=== PATIENT | male | born 1950 | race Caucasian/White ===

== ENCOUNTER 2020-02-26 15:15 | Outpatient (REF) | payer BC, SELFPAY ==
[2020-02-26 16:34] LABS: Anion Gap 11 (12-20); Blood Urea Nitrogen 27 mg/dL (9-16); Calcium 8.5 mg/dL (8.4-10.2); Carbon Dioxide 27 mmol/L (22-29); Chloride 105 mmol/L (96-108); Estimated Glomerular Filt Rate > 60; Glucose Random 90 mg/dL (60-115); Potassium 4.4 mmol/l (3.3-5.1); Sodium 139 mmol/L (135-145)
== END 2020-02-26 15:16 | disposition home or self-care (01) ==
LOC: HO.LAB 15:15
PROVIDERS: PCP Internal Medicine; Visit Provider Internal Medicine Cardiovascular Disease
DX: R94.39 Abnormal result of other cardiovascular function study (principal)
CPT/HCPCS: 80048

== ENCOUNTER → 2020-04-20 14:38 | Outpatient (BNVA) | payer BC, SELFPAY | PROVIDERS: PCP Internal Medicine; Visit Provider Internal Medicine Cardiovascular Disease | DX: Z76.89 Persons encountering health services in other specified circumstances (principal) ==

== ENCOUNTER 2020-07-05 15:36 | Outpatient (REF) | payer BC, SELFPAY ==
[2020-07-05 16:13] LABS: Alanine Aminotransferase 17 U/L (0-40); Albumin Level 4.2 g/dL (3.5-5.0); Alkaline Phosphatase 94 U/L (39-117); Aspartate Amino Transferase 18 U/L (5-37); Bilirubin Direct 0.4 mg/dL (0.0-0.5); Bilirubin Total 1.2 mg/dL (0.0-1.0); Cholesterol 179 mg/dL; HDL Cholesterol 59 mg/dL; LDL Cholesterol Calculated 107 mg/dl; Total Protein 6.5 g/dL (6.5-8.0); Triglycerides 69 mg/dL
[2020-07-05 16:40] LABS: Reflex LDLD? No
== END 2020-07-05 15:37 | disposition home or self-care (01) ==
LOC: HO.LNP 15:36
PROVIDERS: Visit Provider Internal Medicine
DX: E78.00 Pure hypercholesterolemia, unspecified (principal)
CPT/HCPCS: 80061; 80076

== ENCOUNTER 2021-01-17 11:40 | Outpatient (REF) | payer BC, SELFPAY ==
[2021-01-17 11:46] LABS: MANUAL DIFF FLAG NO
[2021-01-17 11:58] LABS: Basophils Percent Auto 0.5 % (0-2); Eosinophils Absolute Auto 0.1 X10*3/uL (0.0-0.4); Eosinophils Percent Auto 3.2 % (0-4); Hematocrit 38.4 % (42-52); Hemoglobin 12.5 g/dl (14.0-18.0); Imm Gran Abs Auto 0.01 X10*3/uL (0.00-0.03); Imm Gran Pct Auto 0.2 % (0.0-0.4); Lymphocytes Absolute Auto 1.3 X10*3/uL (1.2-4.9); Lymphocytes Percent Auto 29.3 % (20-40); Mean Corpuscular HGB Conc 32.6 g/dl (31.0-36.0); Mean Corpuscular Hemoglobin 31.8 pg (27.0-33.0); Mean Corpuscular Volume 97.7 fL (80-98); Mean Platelet Volume 9.7 fL (9.4-12.4); Monocytes Absolute Auto 0.4 X10*3/uL (0.1-1.2); Monocytes Percent Auto 8.8 % (2-11); Neutrophils Absolute Auto 2.6 X10*3/uL (2.0-8.3); Platelet Count 147 X10*3/uL (160-400); Red Blood Count 3.93 X10*6/uL (4.60-5.80); Red Cell Distribution Width 12.3 % (11.0-16.0); White Blood Count 4.4 X10*3/uL (4.8-10.8)
[2021-01-17 12:22] LABS: Appearance Urine CLEAR; Color Urine YELLOW; Glucose Urine UA NEG (NEG); Leukocyte Esterase Urine NEG (NEG); Nitrite Urine NEG (NEG); Specific Gravity - Urine 1.015 (1.005-1.025); Urine Blood NEG (NEG); Urine Ketones NEG (NEG); Urine Protein NEG (NEG-TRACE)
[2021-01-17 13:38] LABS: Alanine Aminotransferase 16 U/L (0-40); Albumin Level 4.1 g/dL (3.5-5.0); Alkaline Phosphatase 78 U/L (39-117); Anion Gap 13 (12-20); Aspartate Amino Transferase 19 U/L (5-37); Bilirubin Total 1.1 mg/dL (0.0-1.0); Blood Urea Nitrogen 17 mg/dL (9-16); Carbon Dioxide 26 mmol/L (22-29); Chloride 106 mmol/L (96-108); Cholesterol 170 mg/dL; Estimated Glomerular Filt Rate > 60; Glucose Fasting 92 mg/dL (60-99); HDL Cholesterol 57 mg/dL; LDL Cholesterol Calculated 103 mg/dl; Potassium 3.9 mmol/L (3.3-5.1); Sodium 141 mmol/L (135-145); Total Protein 6.2 g/dL (6.5-8.0); Triglycerides 51 mg/dL
[2021-01-17 13:51] LABS: PSA,Total (Free>4and<10) 2.15 ng/mL (0.00-4.00)
[2021-01-17 13:55] LABS: Reflex LDLD? No
== END 2021-01-17 11:41 | disposition home or self-care (01) ==
LOC: HO.LNP 11:40
PROVIDERS: Visit Provider Internal Medicine
DX: Z00.00 Encounter for general adult medical examination without abnormal findings (principal); I25.118 Atherosclerotic heart disease of native coronary artery with other forms of angina pectoris; E78.00 Pure hypercholesterolemia, unspecified; M72.0 Palmar fascial fibromatosis [Dupuytren]
CPT/HCPCS: 80053; 80061; 81003; 84153; 85025

== ENCOUNTER → 2021-04-10 14:46 | Outpatient (BNVA) | payer BC, SELFPAY | PROVIDERS: PCP Internal Medicine; Referring Provider Internal Medicine; Visit Provider Internal Medicine Cardiovascular Disease | DX: I25.10 Atherosclerotic heart disease of native coronary artery without angina pectoris (principal); R06.02 Shortness of breath; R07.89 Other chest pain | CPT/HCPCS: 93005 ==

== ENCOUNTER 2022-01-19 15:00 | Outpatient (REF) | payer BC, SELFPAY ==
[2022-01-19 15:17] LABS: MANUAL DIFF FLAG NO
[2022-01-19 15:39] LABS: Basophils Percent Auto 0.9 % (0-2); Eosinophils Absolute Auto 0.2 X10*3/uL (0.0-0.4); Eosinophils Percent Auto 4.5 % (0-4); Hematocrit 40.3 % (42.0-52.0); Hemoglobin 13.5 g/dl (14.0-18.0); Imm Gran Abs Auto 0.01 X10*3/uL (0.00-0.03); Imm Gran Pct Auto 0.3 % (0.0-0.4); Lymphocytes Absolute Auto 0.9 X10*3/uL (1.2-4.9); Lymphocytes Percent Auto 28.3 % (20-40); Mean Corpuscular HGB Conc 33.5 g/dl (31.0-36.0); Mean Corpuscular Hemoglobin 31.8 pg (27.0-33.0); Mean Corpuscular Volume 94.8 fL (80.0-98.0); Mean Platelet Volume 9.2 fL (9.4-12.4); Monocytes Absolute Auto 0.3 X10*3/uL (0.1-1.2); Neutrophils Absolute Auto 1.9 x10*3/uL (2.0-8.3); Platelet Count 159 X10*3/uL (160-400); Red Blood Count 4.25 X10*6/uL (4.60-5.80); Red Cell Distribution Width 12.6 % (11.0-16.0); White Blood Count 3.3 X10*3/uL (4.8-10.8)
[2022-01-19 16:19] LABS: Appearance Urine Clear; Color Urine Yellow; Glucose Urine UA Negative (Negative); Leukocyte Esterase Urine Small (1+) (Negative); Nitrite Urine Negative (Negative); PH 6.5 (5.0-9.0); Specific Gravity - Urine 1.015 (1.005-1.025); UMIC TRIGGER UA YES; Urine Blood Small (1+) (Negative); Urine Ketones Negative (Negative); Urine Protein Negative (Neg-Trace)
[2022-01-19 16:25] LABS: Alanine Aminotransferase 18 U/L (0-40); Albumin Level 4.3 g/dL (3.5-5.0); Alkaline Phosphatase 94 U/L (39-117); Anion Gap 15 (12-20); Aspartate Amino Transferase 20 U/L (5-37); Bilirubin Total 1.5 mg/dL (0.0-1.0); Blood Urea Nitrogen 18 mg/dL (9-16); Calcium 9.3 mg/dL (8.4-10.2); Carbon Dioxide 26 mmol/L (22-29); Chloride 103 mmol/L (96-108); Cholesterol 229 mg/dL; Estimated Glomerular Filt Rate > 60; Glucose Random 92 mg/dL (60-115); HDL Cholesterol 60 mg/dL; LDL Cholesterol Calculated 158 mg/dl; Potassium 4.7 mmol/L (3.3-5.1); Sodium 139 mmol/L (135-145); Total Protein 6.8 g/dL (6.5-8.0); Triglycerides 58 mg/dL
[2022-01-19 16:35] LABS: Bacteria Urine None Seen (None Seen); Hyaline Casts Urine 0-2 /LPF (0-2); Squamous Epithelial Cell Urine 0-2 /HPF (0-2); WBC Urine 0-5 /HPF (0-5)
[2022-01-19 16:45] LABS: PSA,Total (Free>4and<10) 1.91 ng/mL (0.00-4.00)
== END 2022-01-19 15:01 | disposition home or self-care (01) ==
LOC: HO.LAB 15:00
PROVIDERS: PCP Internal Medicine; Visit Provider Internal Medicine
DX: Z00.00 Encounter for general adult medical examination without abnormal findings (principal); E78.00 Pure hypercholesterolemia, unspecified; Z12.5 Encounter for screening for malignant neoplasm of prostate
CPT/HCPCS: 36415; 80053; 80061; 81001; 84153; 85025

== ENCOUNTER 2022-01-26 16:03 | Outpatient (REF) | payer BC, SELFPAY ==
[2022-01-26 16:16] LABS: Appearance Urine Clear; Color Urine Yellow; Glucose Urine UA Negative (Negative); Leukocyte Esterase Urine Trace (Negative); Nitrite Urine Negative (Negative); PH 5.5 (5.0-9.0); Specific Gravity - Urine 1.015 (1.005-1.025); UMIC TRIGGER UA YES; Urine Blood Negative (Negative); Urine Ketones Negative (Negative); Urine Protein Negative (Neg-Trace)
[2022-01-26 16:18] LABS: Bacteria Urine None Seen (None Seen); Hyaline Casts Urine 0-2 /LPF (0-2); Squamous Epithelial Cell Urine 0-2 /HPF (0-2); WBC Urine 0-5 /HPF (0-5)
== END 2022-01-26 16:04 | disposition home or self-care (01) ==
LOC: HO.LNP 16:03
PROVIDERS: Visit Provider Internal Medicine
DX: R31.21 Asymptomatic microscopic hematuria (principal)
CPT/HCPCS: 81001

== ENCOUNTER 2022-02-26 10:54 | Outpatient (REF) | payer BC, SELFPAY ==
[2022-02-26 11:12] LABS: Bacteria Urine None Seen (None Seen); Hyaline Casts Urine 0-2 /LPF (0-2); Squamous Epithelial Cell Urine 0-2 /HPF (0-2); WBC Urine 0-5 /HPF (0-5)
[2022-02-26 11:18] LABS: Appearance Urine Clear; Color Urine Yellow; Glucose Urine UA Negative (Negative); Leukocyte Esterase Urine Negative (Negative); Nitrite Urine Negative (Negative); Specific Gravity - Urine 1.025 (1.005-1.025); Urine Blood Negative (Negative); Urine Ketones Trace mg/dL (Negative); Urine Protein Negative (Neg-Trace)
== END 2022-02-26 10:55 | disposition home or self-care (01) ==
LOC: HO.LNP 10:54
PROVIDERS: Visit Provider Internal Medicine
DX: R31.29 Other microscopic hematuria (principal)
CPT/HCPCS: 81001

== ENCOUNTER 2022-08-30 11:54 | Outpatient (REF) | payer BC, SELFPAY ==
[2022-08-30 12:10] LABS: Appearance Urine Clear; Color Urine Yellow; Glucose Urine UA Negative (Negative); Leukocyte Esterase Urine Negative (Negative); Nitrite Urine Negative (Negative); PH 6.5 (5.0-9.0); Urine Blood Negative (Negative); Urine Ketones Negative (Negative); Urine Protein Negative (Neg-Trace)
[2022-08-30 12:13] LABS: Bacteria Urine None Seen (None Seen); Hyaline Casts Urine 0-2 /LPF (0-2); RBC Urine 0-2 /HPF (0-2); Squamous Epithelial Cell Urine 0-2 /HPF (0-2); WBC Urine 0-5 /HPF (0-5)
== END 2022-08-30 11:55 | disposition home or self-care (01) ==
LOC: HO.LNP 11:54
PROVIDERS: Visit Provider Internal Medicine
DX: R31.29 Other microscopic hematuria (principal)
CPT/HCPCS: 81001

== ENCOUNTER 2023-01-22 11:12 | Outpatient (REF) | payer BC, SELFPAY ==
[2023-01-22 11:53] LABS: MANUAL DIFF FLAG NO
[2023-01-22 12:11] LABS: Appearance Urine Clear; Color Urine Yellow; Glucose Urine UA Negative (Negative); Leukocyte Esterase Urine Negative (Negative); Nitrite Urine Negative (Negative); PH 6.5 (5.0-9.0); Urine Blood Negative (Negative); Urine Ketones Negative (Negative); Urine Protein Negative (Neg-Trace)
[2023-01-22 12:15] LABS: Basophils Percent Auto 0.7 % (0-2); Eosinophils Absolute Auto 0.1 X10*3/uL (0.0-0.4); Eosinophils Percent Auto 3.4 % (0-4); Hematocrit 39.8 % (42.0-52.0); Imm Gran Abs Auto 0.01 X10*3/uL (0.00-0.03); Imm Gran Pct Auto 0.2 % (0.0-0.4); Lymphocytes Absolute Auto 1.4 X10*3/uL (1.2-4.9); Lymphocytes Percent Auto 32.8 % (20-40); Mean Corpuscular HGB Conc 32.7 g/dl (31.0-36.0); Mean Corpuscular Hemoglobin 31.6 pg (27.0-33.0); Mean Corpuscular Volume 96.6 fL (80.0-98.0); Mean Platelet Volume 9.5 fL (9.4-12.4); Monocytes Absolute Auto 0.4 X10*3/uL (0.1-1.2); Monocytes Percent Auto 10.7 % (2-11); Neutrophils Absolute Auto 2.2 x10*3/uL (2.0-8.3); Neutrophils Percent Auto 52.2 % (45-73); Platelet Count 166 X10*3/uL (160-400); Red Blood Count 4.12 X10*6/uL (4.60-5.80); Red Cell Distribution Width 12.5 % (11.0-16.0); White Blood Count 4.1 X10*3/uL (4.8-10.8)
[2023-01-22 12:32] LABS: Alanine Aminotransferase 14 U/L (0-40); Alkaline Phosphatase 80 U/L (39-117); Anion Gap 11 (12-20); Aspartate Amino Transferase 17 U/L (5-37); Bilirubin Total 0.8 mg/dL (0.0-1.0); Blood Urea Nitrogen 16 mg/dL (9-16); Carbon Dioxide 28 mmol/L (22-29); Chloride 105 mmol/L (96-108); Cholesterol 249 mg/dL (<200); Estimated Glomerular Filt Rate > 60; Glucose Fasting 95 mg/dL (60-99); HDL Cholesterol 58 mg/dL (>40); LDL Cholesterol Calculated 178 mg/dL (<100); Potassium 3.9 mmol/L (3.3-5.1); Sodium 140 mmol/L (135-145); Total Protein 6.5 g/dL (6.5-8.0); Triglycerides 69 mg/dL (<150)
[2023-01-22 12:42] LABS: PSA,Total (Free>4and<10) 1.92 ng/mL (0.00-4.00)
== END 2023-01-22 11:13 | disposition home or self-care (01) ==
LOC: HO.LNP 11:12
PROVIDERS: Visit Provider Internal Medicine
DX: Z00.00 Encounter for general adult medical examination without abnormal findings (principal); Z12.5 Encounter for screening for malignant neoplasm of prostate; E78.00 Pure hypercholesterolemia, unspecified; D70.9 Neutropenia, unspecified
CPT/HCPCS: 80053; 80061; 81003; 84153; 85025

== ENCOUNTER 2024-01-23 11:25 | Outpatient (REF) | payer BC, SELFPAY ==
[2024-01-23 11:30] LABS: MANUAL DIFF FLAG NO
[2024-01-23 11:36] LABS: Basophils Percent Auto 0.8 % (0-2); Eosinophils Absolute Auto 0.2 X10*3/uL (0.0-0.4); Eosinophils Percent Auto 4.3 % (0-4); Hemoglobin 12.4 g/dl (14.0-18.0); Imm Gran Abs Auto 0.01 X10*3/uL (0.00-0.03); Imm Gran Pct Auto 0.3 % (0.0-0.4); Lymphocytes Absolute Auto 1.4 X10*3/uL (1.2-4.9); Lymphocytes Percent Auto 35.8 % (20-40); Mean Corpuscular HGB Conc 33.5 g/dl (31.0-36.0); Mean Corpuscular Hemoglobin 32.2 pg (27.0-33.0); Mean Corpuscular Volume 96.1 fL (80.0-98.0); Mean Platelet Volume 9.6 fL (9.4-12.4); Monocytes Absolute Auto 0.3 X10*3/uL (0.1-1.2); Monocytes Percent Auto 8.4 % (2-11); Neutrophils Percent Auto 50.4 % (45-73); Platelet Count 138 X10*3/uL (160-400); Red Blood Count 3.85 X10*6/uL (4.60-5.80); Red Cell Distribution Width 12.6 % (11.0-16.0); White Blood Count 3.9 X10*3/uL (4.8-10.8)
[2024-01-23 12:04] LABS: Appearance Urine Clear; Color Urine Yellow; Glucose Urine UA Negative (Negative); Leukocyte Esterase Urine Negative (Negative); Nitrite Urine Negative (Negative); PH 6.5 (5.0-9.0); Specific Gravity - Urine 1.025 (1.005-1.025); Urine Blood Negative (Negative); Urine Ketones Negative (Negative); Urine Protein Negative (Neg-Trace)
[2024-01-23 12:10] LABS: Alanine Aminotransferase 17 U/L (0-40); Albumin Level 3.8 g/dL (3.5-5.0); Alkaline Phosphatase 86 U/L (39-117); Anion Gap 10 (12-20); Aspartate Amino Transferase 20 U/L (5-37); Bilirubin Total 0.6 mg/dL (0.0-1.0); Blood Urea Nitrogen 26 mg/dL (9-16); Calcium 8.9 mg/dL (8.4-10.2); Carbon Dioxide 28 mmol/L (22-29); Chloride 107 mmol/L (96-108); Cholesterol 250 mg/dL (<200); Estimated Glomerular Filt Rate > 60; Glucose Fasting 98 mg/dL (60-99); HDL Cholesterol 60 mg/dL (>40); LDL Cholesterol Calculated 178 mg/dL (<100); Potassium 4.1 mmol/L (3.3-5.1); Sodium 141 mmol/L (135-145); Total Protein 6.3 g/dL (6.5-8.0); Triglycerides 61 mg/dL (<150)
[2024-01-23 12:11] LABS: Bacteria Urine None Seen (None Seen); Hyaline Casts Urine 0-2 /LPF (0-2); RBC Urine 0-2 /HPF (0-2); Squamous Epithelial Cell Urine 0-2 /HPF (0-2); WBC Urine 0-5 /HPF (0-5)
[2024-01-23 12:14] LABS: PSA,Total (Free>4and<10) 2.37 ng/mL (0.00-4.00)
== END 2024-01-23 11:26 | disposition home or self-care (01) ==
LOC: HO.LNP 11:25
PROVIDERS: Visit Provider Internal Medicine
DX: Z00.00 Encounter for general adult medical examination without abnormal findings (principal); E78.00 Pure hypercholesterolemia, unspecified; D70.9 Neutropenia, unspecified; Z12.5 Encounter for screening for malignant neoplasm of prostate
CPT/HCPCS: 80053; 80061; 81001; 84153; 85025

== ENCOUNTER 2024-04-06 12:43 | Outpatient (REF) | payer BC, SELFPAY ==
[2024-04-06 14:01] LABS: Blood Urea Nitrogen 23 mg/dL (9-16)
== END 2024-04-06 12:44 | disposition home or self-care (01) ==
LOC: HO.LNP 12:43
PROVIDERS: Visit Provider Internal Medicine
DX: R79.9 Abnormal finding of blood chemistry, unspecified (principal)
CPT/HCPCS: 84520

== ENCOUNTER 2024-08-03 07:00 | Outpatient (REF) | payer BC, SELFPAY ==
[2024-08-03 13:35] LABS: Alanine Aminotransferase 17 U/L (0-40); Alkaline Phosphatase 97 U/L (39-117); Aspartate Amino Transferase 24 U/L (5-37); Bilirubin Direct 0.2 mg/dL (0.0-0.5); Cholesterol 252 mg/dL (<200); HDL Cholesterol 57 mg/dL (>40); LDL Cholesterol Calculated 179 mg/dL (<100); Total Protein 6.6 g/dL (6.5-8.0); Triglycerides 83 mg/dL (<150)
--- OUTSIDE RECORDS SUMMARY | 2024-08-03 13:52 | XMS_ITS ---
Author Organization Ronak Diaz MD Address [address] [place] [phone] Care Team Providers Care Epidemiology Internship Name Role Phone Ronak Diaz Primary Care Provider [phone] Results Component Value Reference Range Notes Blood Urea Nitrogen Reviewed date:04/06/2024 05:20:44 PM Interpretation: Performing Lab:[facility], [address] [place] [phone] Notes/Report: Blood Urea Nitrogen 23 9-16 mg/dL REASON FOR VISIT BUN Medications Medication SIG (Take, Route, Frequency, Duration) Notes Start Date End Date Status Atorvastatin Calcium 20 MG take 1 tablet by mouth every day Orally Once a day for 90 days Active Encounters Encounter Location Date Provider Diagnosis Ronak Diaz MD [address] [place] [phone] 04/06/2024 Ronak Diaz Elevated BUN R79.9 Assessments Encounter Date Diagnosis (ICD Code) Assessment Notes Treatment Notes Treatment Clinical Notes Section Notes 04/06/2024 Elevated BUN (ICD-10 - R79.9) Plan Of Treatment Next Appt Details Provider Name:Ronak Mendoza ier, 02/02/2025 07:15:00 AM, [address], [address], [place], [place], [phone], Provider Name:Ronak Mendoza ier, 02/23/2025 01:00:00 PM, [address], [address], [place], [phone], Progress Notes * Alexis VAZUQEZ VDOB:1950 (74 yo M)Acc No.[id number]:04/06/2024 Progress Note Patient:?Alexis VAZQUEZ V Provider:?Ronak Diaz MD :1950???Age:73 Y???Sex:Male Marshal e:04/06/2024 Address:[address] [place], [place] [phone] Subjective: * Chief Complaints: * ???1. BUN. * Medical History:? * Medications:?Taking Atorvast atin Calcium 20 MG Tablet take 1 tablet by mouth every day Orally Once a day Objective: * Vitals:? Assessment: * Assessment: 1.?Elevated BUN - R79.9 (Ruth Ann alexus)??? Plan: * Treatment: * Procedure Codes:?46148 VENIP UNCT, ROUTINE* * * The named appointment provid er may or may not be the originator of this progress note, and it is not deemed complete until electronically signed by the appointment provider. Sign off status: Pending * Provider:?Ronak Diaz MD Date:?1 06/07/2023 Generated for Brooke briones/Mansi/eTransmitting on:?08/03/2024 01:51 PM EDT
--- OUTSIDE RECORDS SUMMARY | 2024-08-03 13:52 | XMS_ITS ---
Author Organization Ronak Diaz MD Address [address] [place] [phone] Care Team Providers Care Cylinder Machine Operator Name Role Phone Ronak Diaz Primary [...] Location Date Provider Diagnosis Ronak Diaz MD [address] [place] [address] [place] [phone] 02/03/2024 Ronak Diaz Pure hypercholestero lemia E78.00 ; Annual physical exam Z00.00 ; Coronary 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[place] artery of [place] heart with stable angina pectoris I25.118 ; Elevated BUN R79.9 and Depression screening Z13.31 Assessments Encounter Date Diagnosis (ICD Code) Assessment Notes Treatment Notes Treatment Clinical Notes Section Notes 02/03/2024 Pure hypercholesterolemia (ICD-10 - E78.00) will restart medication 02/03/2024 Annual physical exam (ICD-10 - Z00.00) labs reviewed and discussed with patient 02/03/2024 Coronary artery dise ase of [place] artery of [place] heart with stable angina pectoris (ICD-10 - [...] Up: 1 Year, Reason: Provider Name:Ronak anderson, 02/02/2025 07:15:00 AM, [address] [place] [address], [place] [address], [place], [place], [phone], Provider Name:Ronak anderson, 02/23/2025 01:00:00 PM, [address] [place] [address], [address], [phone], Progress Notes * Alexis VAZQUEZ VDOB:1950 (73 yo M)Acc No.[id number]:02/03/2024 Progress Notes Patient:?Alexis Vazquez V Provider:?Ronak Diaz MD :1950???Age:73 Y???Sex:Male Marshal e:02/03/2024 Address:[address] [place] [address] Harjeet Nichols [id number] Subjective: * Chief Complaints: * ???ANNUAL EXAMOverdue for Co loguardCBACK BUNtopped Atorvastatin 6 months ago * HPI: ???Depression Screening:?PHQ-9?Little interest or pleasure in doing things?Not at all,?Feeling down, depressed, or hopeless?Not at all,?Trouble falling or staying asleep, or sleeping too much?Not at all,?Feeling tired or having little energy?Not at all,?Poor appetite or overeating?Not at all,?Feeling bad about yourself or that you are a failure, or have let yourself or your family down?Not at all,?Trouble concentrating on things, such as reading the newspaper or watching television?Not at all,?Moving or speaking so slowly that other people could have noticed; or the opposite, being so fidgety or restless that you have been moving around a lot more than usual?Not at all,?Thoughts that you would be better off or of hurting yourself in some way?Not at all,?Total Score?0.?Interpretation and Intervention?Depression Screening Findings?Negative,?Follow-Up for Depression?: review of PHQ-9 found negative result, no follow-up needed.? patient is a 73 yo male here for annual visit with review of recent labs and follow up of chronic issues,stopped atorvastatin. ???Communication Needs:?Communication Needs?Does the patient have a hearing impairment?No,?Does the patient have a vision impairment??Yes,?If yes, what is the vision impairment??Glasses,?Does the patient have a cognition impairment??No.?Fall Risk:?History?Have you had any falls with injury in the past year??No,?Have you had two or more falls in the past year??No.?SDOH Questions:?SDOH Questions?In the past year have you been worried about losing housing??No,?In the past year have you or any family members you live with been unable to get any of the following when it was really needed? Check all that apply:?None.? * ROS:?General/Constitutional:?Patient denies?fatigue , headache.?Change in appetite?denies.?Chills?denies.?Fever?denies.?Ophthalmologic:?Blurred vision?denies.?Discharge?denies.?Pain?denies.?ENT:?Patient denies?decreased sense of smell , any loss of taste , sore throat.?Decreased hearing?denies.?Sore throat?denies.?Swollen glands?denies.?Endocrine:?Cold intolerance?denies.?Excessive thirst?denies.?Heat intolerance?denies.?Weight loss?denies.?Respiratory:?Cough?denies.?Shortness of breath at rest?denies.?Shortness of breath with exertion?denies.?Wheezing?denies.?Cardiovascular:?Chest pain at rest?denies.?Chest pain with exertion?admits comes with exertion severe and stops and it goes away with rest. had evaluation by cardioogy and was negative. had cat of chest and minimal plaque. nochange in 4 years..?Irregular heartbeat?denies.?Shortness of breath?denies.?Gastrointestinal:?Abdominal pain?denies.?Change in bowel habits?denies.?Diarrhea?denies.?Nausea?denies.?Rectal bleeding?denies.?Vomiting?denies .?Genitourinary:?Blood in urine?denies.?Difficulty urinating?denies.?Frequent urination?denies.?Musculoskeletal:?Patient denies?muscle aches.?Painful joints?denies.?Weakness?denies.?Peripheral Vascular:?Patient denies?red and blue toes.?Skin:?Dry skin?denies.?Itching?denies.?Denies?Mole(s),? changes in moles, new moles or any lesions of concern.?Denies?Photosensitivity.?Rash?denies.?Neurologic:?Dizziness?denies.?Fainting?denies.?Headache?denies.? * Medical History:? * Surgical History:? * Hospitalization/Major Diagno stic Procedure:? * Family History:?Father: dece ased 85 yrs.?Mother: 89 yrs, diagnosed with Hypertension.?1 brother(s) . .? 1 SISTER, Denies mental health/substance abuse family history, Denies mental health/substance abuse family history, Denies mental health/substance abuse family history, Denies mental health/substance abuse family history, Denies mental health/substance abuse family history. * Social History:?Tobacco Use:?Tobacco Use/Smoking?Patient is a?former smoker,?How long has it been since you last smoked??> 10 years,?Additional Findings: Tobacco Non-User?Former smoker, currently using no form of tobacco.?Drugs/Alcohol:?Alcohol Screen?Did you have a drink containing alcohol in the past year??No,?Points?0,?Interpretation?Negative.?Miscellaneous:?Caffeine: yes, frequency:,2-3 cups including tea. no Children. no Community involvements. 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 Housing: owning. Living with: spouse. Marital status: . Occupation: retired. Pets: none. no Travel outside of the [place]. * Medications:?Not-Taking/PRNA torvastatin Calcium 20 MG Tablet TAKE 1 TABLET BY MOUTH EVERY DAY Medication List reviewed and reconciled with the patientNot-Taking/PRN Atorvastatin Calcium 20 MG Tablet TAKE 1 TABLET BY MOUTH EVERY DAY Medication List reviewed and reconciled with the patient * Allergies:?N.K.D.A.yes[Aller gies Verified] Objective: * Vitals:?Ht: 69, Wt:151, BMI: 22.30, BP:132/60. * ???Past Orders: ???Lab:Complete Blood Count Auto Diff (Order Date - 01/23/2024) (Collection Date - 01/23/2024) ? Value Reference Range ?White Blood Count 3.9 L 4. 8-10.8 - X10*3/uL ?Red Blood Count 3.85 L 4.60 -5.80 - X10*6/uL ?Hemoglobin 12.4 L 14.0-18.0 - g/dl ?Hematocrit 37.0 L 42.0-52.0 - % ?Mean Corpuscular Volume 96.1 80.0-98.0 - fL ?Mean Corpuscular Hemoglobin 32.2 27.0-33.0 - pg ?Mean Corpuscular HGB Conc 33.5 31.0-36.0 - g/dl ?Red Cell Distribution Width 12.6 11.0-16.0 - % ?Platelet Count 138 L 160-4 00 - X10*3/uL ?Mean Platelet Volume 9.6 9.4-12.4 - fL ?Neutrophils Percent Auto 50.4 45-73 - % ?Imm Gran Pct Auto 0.3 0. 0-0.4 - % ?Lymphocytes Percent Auto 35.8 20-40 - % ?Monocytes Percent Auto 8.4 2-11 - % ?Eosinophils Percent Auto 4.3 H 0-4 - % ?Basophils Percent Auto 0.8 0-2 - % ?NRBC Pct Auto 0.0 0.0-0. 2 - /100WBC ?Neutrophils Absolute Auto 2.0 2.0-8.3 - x10*3/uL ?Imm Gran Abs Auto 0.01 0. 00-0.03 - X10*3/uL ?Lymphocytes Absolute Auto 1.4 1.2-4.9 - X10*3/uL ?Monocytes Absolute Auto 0.3 0.1-1.2 - X10*3/uL ?Eosinophils Absolute Auto 0.2 0.0-0.4 - X10*3/uL ?Basophils Absolute Auto 0.0 0.0-0.2 - X10*3/uL ?NRBC Abs Auto 0.000 0.0-0. 012 - X10*3/uL ???Lab:Lipid Panel (Order Da - 01/23/2024) (Collection Date - 01/23/2024) ? Value Reference Range ?Triglycerides 61 <150 - mg/dL ?Cholesterol 250 H <200 - m g/dL ?LDL Cholesterol Calculated 178 H <100 - mg/dL ?HDL Cholesterol 60 >40 - mg/dL ???Lab:PSA,Total (Free>4and< 10) (Order Date - 01/23/2024) (Collection Date - 01/23/2024) ? Value Reference Range ?PSA,Total (Free>4and<10) 2.37 0.00-4.00 - ng/mL ???Lab:UA ClnCatch+Micro w/r flx Cult (Order Date - 01/23/2024) (Collection Date - 01/23/2024) ? Value Reference Range ?Color Urine Yellow - ?Appearance Urine Clear - ?PH 6.5 5.0-9.0 - ?Glucose Urine UA Negative Neg ative - mg/dL ?Urine Blood Negative Negative - ?Specific [place] - Urine 1.025 1.005-1.025 - ?Urine Protein Negative Neg-Tr gerda - mg/dL ?Urine Ketones Negative Negati ve - mg/dL ?Nitrite Urine Negative Negati ve - ?Leukocyte Esterase Urine Negative Negative - ?RBC Urine 0-2 0-2 - /HPF ?WBC Urine 0-5 0-5 - /HPF ?Squamous Epithelial Cell Urine 0-2 0-2 - /HPF ?Bacteria Urine None Seen None Seen - ?Hyaline Casts Urine 0-2 0-2 - /LPF * Examination: ???General Examination: ?GENERAL APPEARANCE:?well developed, well nourished, in no acute distress.?HEAD:?normocephalic, atraumatic.?EYES:?pupils equal, round, reactive to light and accommodation, sclera non-icteric.?EARS:?normal.?ORAL CAVITY:?mucosa moist.?THROAT:?clear.?NECK/THYROID:?neck supple, full range of motion, no cervical lymphadenopathy, no bruits.?SKIN:?warm and dry, no suspicious lesions.?HEART:?regular rate and rhythm, S1, S2 normal, no murmurs.?LUNGS:?clear to auscultation bilaterally.?ABDOMEN:?soft, nontender, nondistended, bowel sounds present, normal, no organomegaly , no masses palpable.?RECTAL EXAM:?normal tone, no external hemorrhoids, no masses palpable, prostate normal, stool guaiac negative.?MALE GENITOURINARY:?no testicular mass, testes descended bilaterally.?EXTREMITIES:?no clubbing, cyanosis, or edema.?NEUROLOGIC:?nonfocal, motor strength normal upper and lower extremities, sensory exam intact.? Assessment: * Assessment: 1.?Annual physical exam - Z0 0.00 (Primary)?2.?Pure hypercholesterolemia - E78.00?3.?Coronary 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[place] artery of [place] heart with stable angina pectoris - I25.118?4.?Elevated BUN - R79.9?5.?Depression screening - Z13.31? Plan: * Treatment: 2.?Pure hypercholesterolemia ? Continue Atorvastatin Calcium Tablet, 20 MG, take 1 tablet by mouth every day, Orally, Once a day, 90 days, 90, Refills 3.?? Notes: will restart medication?? 3.?Elevated BUN?LAB: Blood Urea Nitrogen (Ordered for 04/04/2024) Notes: pending future lab, will monitor?? 4.?Depression screening? Notes: negatve screen?? * Procedure Codes:?37968 VENIP UNCT, ROUTINE* * Follow Up:?1 Year * * Sign off status: Completed true * Provider:?Ronak Diaz MD Date:?0 02/03/2024 Generated for Brooke briones/Mansi/eTandismitting on:?08/03/2024 01:52 PM EDT History and Physical Notes * [...] patient have a vision impairmen t?: Yes ?If yes, what is the vision impairment?: Glasses Does the patient have a cognition impair ment?: No Examination Category Sub-Category Detail Notes Category Not es General Examination GENERAL APPEARANCE: well dev eloped, well nourished, in no acute distress HEAD: normocephalic, atrau matic EYES: pupils equal, round, reactive to light and accommodation, sclera non- icteric EARS: normal THROAT: clear NECK/THYROID: neck supple, [...]
--- OUTSIDE RECORDS SUMMARY | 2024-08-03 13:52 | XMS_ITS ---
Author Organization Ronak Diaz MD Address [address] [place] [phone] Care Team Providers Care Special Education Case Manager Name Role Phone Ronak Diaz Primary Care Provider REASON FOR VISIT FASTING LIPIDS Encounters Encounter Location Date Provider Diagnosis Ronak Diaz MD [address] [facility] [address] [place] [phone] 08/03/2024 Ronak Diaz Pure hypercholestero lemia E78.00 Assessments Encounter Date Diagnosis (ICD Code) Assessment Notes Treatment Notes Treatment Clinical Notes Section Notes 08/03/2024 Pure hypercholesterolemia (ICD-10 - E78.00) Plan Of Treatment Pending Test Test Name Order Date Liver Panel 08/03/2024 Lipid Panel with Reflex 08/03/2024 Next Appt Details Provider Name:Ronak Mendoza ier, 02/02/2025 07:15:00 AM, [address] [place] [address], [address] [place] [address], [phone], Provider Name:Ronak anderson, 02/23/2025 01:00:00 PM, [address] [place] [address], [address] [place] [address], [phone], Progress Notes * Alexis VAZQUEZ VDOB:1950 (74 yo M)Acc No.[id number]:08/03/2024 Progress Note Patient:Alexis VALVERDE V Provider:?Ronak Diaz MD :1950???Age:74 Y???Sex:Male Marshal e:08/03/2024 Address:[address] [place], [place] [phone] Subjective: * Chief Complaints: * ???1. FASTING LIPIDS. * Medical History:? Objective: * Vitals:? Assessment: * Assessment: 1.?Pure hypercholesterolemia - E78.00 (Primary)??? Plan: * Treatment: * Procedure Codes:?38488 VENIP UNCT, ROUTINE* * * The named appointment provid er may or may not be the originator of this progress note, and it is not deemed complete until electronically signed by the appointment provider. Sign off status: Pending * Provider:?Ronak Diaz MD Date:?0 08/03/2024 Generated for Brooke briones/Mansi/eTandismitting on:?08/03/2024 01:52 PM EDT
--- OUTSIDE RECORDS SUMMARY | 2024-08-03 13:52 | XMS_ITS | Patient Health Record ---
Author Organization Ronak Diaz MD Address [address] [place], [place] [phone] Care Team Providers Care Clinical Exercise Specialist Name Role Phone Ronak Diaz Primary Care Provider Allergies No Known Allergies Results Component Value Reference Range Notes Complete Blood Count Auto Di ff Reviewed date:01/23/2024 05:00:18 PM Interpretation: Performing Lab:[facility], [address] [place] [phone] Notes/Report: White Blood Count 3.9 4.8-10.8 X10*3/uL [...] NRBC Abs Auto 0.000 0.0-0.012 X10*3/uL Comprehensive [employer]. Panel Fa st Reviewed date:02/06/2024 08:19:40 AM Interpretation:NAOMY 02/02 Performing Lab:[facility], [address] [place] [phone] Notes/Report: Sodium 141 135-145 mmol/L Potassium 4.1 3.3-5.1 mmol/L Chloride 107 96-108 mmol/L Carbon Dioxide 28 22-29 mmol/L Anion Gap 10 12-20 Blood Urea Nitrogen 26 9-16 mg/dL Creatinine 0.91 0.5-1.4 mg/dL Estimated Glomerular Filt Rate > 60 NOTE: For -Scottish individuals, multiply the result by 1.210. Chronic [...] Panel Reviewed date:01/23/2024 12:17:12 PM Interpretation: Performing Lab:[facility], [address] [place] [phone] Notes/Report: Triglycerides 61 <150 mg/dL Desirable Triglyceride: [...] (Free>4and<10) Reviewed date:01/23/2024 12:17:22 PM Interpretation: Performing Lab:[address] [phone] Notes/Report: PSA,Total (Free>4and<10) 2.37 0.00-4.00 ng/mL A [...] t Reviewed date:01/23/2024 12:20:26 PM Interpretation: Performing Lab:[facility], [address] [place] [phone] Notes/Report: [id number] Urine, Clean Catch Color Urine Yellow Appearance Urine Clear PH 6.5 5.0-9.0 Glucose Urine UA Negative Negative mg/dL Urine Blood Negative Negative Specific [place] - Urine 1.025 1.005-1.025 Urine Protein Negative Neg-Trace mg/dL Urine Ketones Negative Negative mg/dL Nitrite Urine Negative Negative Leukocyte Esterase Urine Negative Negative RBC Urine 0-2 0-2 /HPF WBC Urine 0-5 0-5 /HPF Squamous Epithelial Cell Urine 0-2 0-2 /HPF Bacteria Urine None Seen None Seen Hyaline Casts Urine 0-2 0-2 /LPF Blood Urea Nitrogen Reviewed date:04/06/2024 05:20:44 PM Interpretation: Performing Lab:[address] [phone] Notes/Report: Blood Urea Nitrogen 23 9-16 mg/dL Curry Hong Reviewed date:08/03/2024 01:49:46 PM Interpretation: Performing Lab:[address] [phone] Notes/Report: Curry Hong See Note Specimen held untested for 24 hours; Call to request Chemistry testing. Reason For Referral No Information Medications Medication SIG (Take, Route, Frequency, Duration) Notes Start Date End Date Status Atorvastatin Calcium 20 MG take 1 tablet by mouth every day Orally Once a day for 90 days Active Immunizations Vaccine Route Administration Date Status Comme nts Flu Vaccine Unknown 05/15/2012 Administered [facility] Flu Vaccine IM Intramuscular 02/24/2015 Administered Fluarix Quadrivalent IM Intramuscular 05/20/2018 Adminyasmany moya pt was given the vaccine at [facility] on [facility] in [place]. Prevnar 13 IM Intramuscular 01/08/2020 Administered Fluarix Quadrivalent IM Intramuscular 02/09/2020 Administjimi moya Fluarix Quadrivalent - 150 IM Intramuscular 01/23/2024 Administered Covid Vaccine Unknown 01/26/2022 Refused Social History Tobacco Use: Social History Observation [...] ast year? No Points 0 Interpretation Negative Problems Problem Type SNOMED Code ICD Code Onset Dates Problem Status W/U Status Risk Notes Problem Carpal tunnel syndrome of right wrist (5334230861921 08) Carpal tunnel syndrome of right wrist (G56.01) Active confirmed Problem Carpal tunnel syndrome of left wrist (7827604237466 02) Carpal tunnel syndrome of left wrist (G56.02) Active confirmed Problem Contracture of palmar fascia (401074218) Dupuytrens contracture (M72.0) Active confirmed Problem 305802760 Neutropenia, unspecified type (D70.9) Active confirmed Problem 189785999 Pure hypercholesterolemia (E78.00) Active confirmed Problem 556090857 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 Vital Signs Blood pressure diastolic 60 mm Hg 02/03/2024 Height 69 in 02/03/2024 Blood pressure systolic 132 mm Hg 02/03/2024 Weight 151 lbs 02/03/2024 BMI 22.30 kg/m2 02/03/2024 Encounters Encounter Location Date Provider Diagnosis Ronak Diaz MD [address] [place] [phone] 01/23/2024 Ronak Diaz Blood tests for rout ine general physical examination Z00.00 ; Encounter for immunization Z23 ; Pure hypercholesterolemia E78.00 and Neutropenia, unspecified type D70.9 Ronak Diaz MD [address] [place] [address] Drive [address] [place] [phone] 04/06/2024 Ronak Diaz Elevated BUN R79.9 Ronak Diaz MD [address] [place] [address] Drive [address] [place] [phone] 08/03/2024 Ronak Diaz Pure hypercholestero lemia E78.00 Ronak Diaz MD [address] [place] [id number] 02/03/2024 Ronak Diaz Pure hypercholestero lemia E78.00 ; Annual physical exam Z00.00 ; Coronary 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[place] artery of [place] heart with stable angina pectoris I25.118 ; Elevated BUN R79.9 and Depression screening Z13.31 Assessments Encounter Date Diagnosis (ICD Code) Assessment Notes Treatment Notes Treatment Clinical Notes Section Notes 01/23/20[address] tests [address] ine general physical examination (ICD-10 - Z00.00) 01/23/2024 Encounter for immunization (ICD-10 - Z23) 04/06/2024 Elevated BUN (ICD-10 - R79.9) 08/03/2024 Pure hypercholesterolemia (ICD-10 - E78.00) 02/03/2024 Pure hypercholesterolemia (ICD-10 - E78.00) will restart medication 02/03/2024 Annual physical exam (ICD-10 - Z00.00) labs reviewed and discussed with patient 01/23/2024 Pure hypercholesterolemia (ICD-10 - E78.00) 02/03/2024 Coronary artery dise ase of [place] artery of [place] heart with stable angina pectoris (ICD-10 - I25.118) 01/23/2024 Neutropenia, unspeci fied type (ICD-10 - D70.9) 02/03/2024 Elevated BUN (ICD-10 - R79.9) pending future lab, will monitor 02/03/2024 Depression screening (ICD-10 - Z13.31) negatve screen Plan Of Treatment Pending Test Test Name Order Date Electrocardiogram (EKG) 11/10/2015 Stress Test 01/04/2020 Liver Panel 08/03/2024 Lipid Panel with Reflex 08/03/2024 Next Appt Details Provider Name:Ronak Mendoza ier, 02/02/2025 07:15:00 AM, [address] [place] [address], [address], [phone], Provider Name:Ronak Mendoza ier, 02/23/2025 01:00:00 PM, [address] [place] [address], [address], [phone], Insurance Providers Payer Name Payer Address Payer Phone Subscriber Number Group Number Insured Name Patient Relationship to Insured Coverage Start Date Coverage End Date [employer] [address] [place], [place] [id number] Alexis Edge Self - patient is the insured Medical (General) History Medical History History ICD Code colonoscopy refused 2014. 2015 2018 2019 cologard 2020
[2024-08-03 15:05] LABS: Reflex LDLD? No
== END 2024-08-03 07:01 | disposition home or self-care (01) ==
LOC: HO.LNP 07:00
PROVIDERS: Visit Provider Internal Medicine
DX: E78.00 Pure hypercholesterolemia, unspecified (principal)
CPT/HCPCS: 80061; 80076

== ENCOUNTER 2025-02-02 12:57 | Outpatient (REF) | payer BC, SELFPAY ==
--- OUTSIDE RECORDS SUMMARY | 2024-02-03 11:30 | XMS_ITS ---
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 ; Elevated BUN R79.9 and Depression screening Z13.31 Assessments Encounter Date Diagnosis (ICD Code) Assessment Notes Treatment Notes Treatment Clinical Notes Section Notes 02/03/2024 Pure hypercholesterolemia (ICD-10 - E78.00) will restart medication 02/03/2024 Annual physical exam (ICD-10 - Z00.00) labs reviewed and discussed with patient 02/03/2024 Coronary artery dise ase of soboba artery of soboba heart with stable angina pectoris (ICD-10 - [...] Follow Up: 1 Year, Reason: Provider Name:Ronak Mendoza ier, 02/23/2025 01:00:00 PM, [address], [address], [place], [place], [phone], Progress Notes * Alexis VAZQUEZ VDOB:1950 (73 yo M)Acc No.[id number]:02/03/2024 Progress Notes Patient: Alexis Rodriguez V Provider: Swathi Diaz MD :1950 A ge:73 Y S ex:Male Date:02/03/2024 Address:[address] [place], [place] [phone] Subjective: * Chief Complaints: * A NNUAL [...] Pets: none. no Travel outside of the [place]. * Medications: N ot-Taking/PRNAtorvastatin Calcium 20 [...] mg/dL Urine Blood Negative Negative - Specific Nursery - Urine 1.025 1.005-1.025 - Urine Protein [...] - E78.00?3. 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
--- OUTSIDE RECORDS SUMMARY | 2024-04-06 04:00 | XMS_ITS ---
Author Organization Ronak Diaz MD Address [address] [place] [phone] Care Team Providers Care Digital Marketing Manager Name Role Phone oRnak Diaz Primary Care Provider Results Component Value Reference Range Notes Blood Urea Nitrogen Reviewed date:04/06/2024 05:20:44 PM Interpretation: Performing Lab:[facility], [address] [place] [phone] Notes/Report: Blood Urea Nitrogen 23 9-16 mg/dL REASON FOR VISIT BUN Medications Medication SIG (Take, Route, Frequency, Duration) Notes Start Date End Date Status Atorvastatin Calcium 20 MG take 1 tablet by mouth every day Orally Once a day for 90 days Active Encounters Encounter Location Date Provider Diagnosis Ronak Diaz MD [address] [place] [phone] 04/06/2024 Ronak Diaz Elevated BUN R79.9 Assessments Encounter Date Diagnosis (ICD Code) Assessment Notes Treatment Notes Treatment Clinical Notes Section Notes 04/06/2024 Elevated BUN (ICD-10 - R79.9) Plan Of Treatment Next Appt Details Provider Name:Ronak farrarr, 02/23/2025 01:00:00 PM, [address] [facility], [address], [place], [place], [phone], Progress Notes * Alexis VAZQUEZ VDOB:1950 (74 yo M)Acc No.[id number]:04/06/2024 Progress Note Patient: Alexis BRISENO V Provider: Swathi Diaz MD :1950 A ge:73 Y S ex:Male Date:04/06/2024 Address:[address] [place], [place] [phone] Subjective: * Chief Complaints: * 1 . BUN. * Medical History: * Medications: T aking Atorvastatin Calcium 20 MG Tablet take 1 tablet by mouth every day Orally Once a day Objective: * Vitals: Assessment: * Assessment: 1. E levated BUN - R79.9 (Primary) Plan: * Treatment: * Procedure Codes: 3 6415 VENIPUNCT, ROUTINE* * * The named appointment provid er may or may not be the originator of this progress note, and it is not deemed complete until electronically signed by the appointment provider. Sign off status: Pending * Provider: Swathi Diaz MD Date: 06/07/2023 Generated for Brooke briones/Mansi/Sumititting on: 0 02/02/2025 02:05 PM EDT
--- OUTSIDE RECORDS SUMMARY | 2024-08-03 03:00 | XMS_ITS ---
Author Organization Ronak Diaz MD Address [address] [place], [place] [phone] Care Team Providers Care Veterans' Counselor Name Role Phone Ronak Diaz Primary Care Provider Results Component Value Reference Range Notes Liver Panel Reviewed date:08/03/2024 04:33:30 PM Interpretation: Performing Lab:[facility], [address] [place] [phone] Notes/Report: Bilirubin Total 1.0 0.0-1.0 mg/dL Bilirubin Direct 0.2 0.0-0.5 mg/dL Aspartate Amino Transferase 24 5-37 U/L Alanine Aminotransferase 17 0-40 U/L Total Protein 6.6 6.5-8.0 g/dL Albumin Level 4.0 3.5-5.0 g/dL Alkaline Phosphatase 97 39-117 U/L Lipid Panel with Reflex Reviewed date:08/03/2024 04:33:22 PM Interpretation: Performing Lab:[facility], [address] [place] [phone] Notes/Report: Triglycerides 83 <150 mg/dL Desirable Triglyceride: less than 150 mg/dL Borderline High Triglyceride 150-199 mg/dL High Triglyceride: 200-499 mg/dL Very High Triglyceride: greater than or equal to 5OO mg/dL Cholesterol 252 <200 mg/dL Desirable Cholesterol: less than 200 mg/dL Borderline High Cholesterol: 200-239 mg/dL High Cholesterol: greater than 239 mg/dL LDL Cholesterol Calculated 179 <100 mg/dL Desirable LDL: less than 100 mg/dL Near Optimal/Above Optimal LDL: 110-129 mg/dL Borderline High LDL: 130-159 mg/dL High LDL: 160-189 mg/dL Very High LDL: greater than or equal to 190 mg/dL HDL Cholesterol 57 >40 mg/dL Desirable HDL: greater than 40 mg/dL Note: This HDL assay may give artificially low results in patients with liver disease. REASON FOR VISIT FASTING LIPIDS Encounters Encounter Location Date Provider Diagnosis Ronak Diaz MD [address] [place] [phone] 08/03/2024 Ronak Diaz Pure hypercholestero lemia E78.00 Assessments Encounter Date Diagnosis (ICD Code) Assessment Notes Treatment Notes Treatment Clinical Notes Section Notes 08/03/2024 Pure hypercholesterolemia (ICD-10 - E78.00) Plan Of Treatment Next Appt Details Provider Name:Ronak Mendoza ier, 02/23/2025 01:00:00 PM, [address], [address] [facility], [place], [place], [phone], Progress Notes * Alexis VAZQUEZ VDOB:1950 (74 yo M)Acc No.[id number]:08/03/2024 Progress Note Patient: Alexis BRISENO V Provider: Swathi Diaz MD :1950 A ge:74 Y S ex:Male Date:08/03/2024 Address:[address] [place] [address] [phone] Subjective: * Chief Complaints: * 1 . FASTING LIPIDS. * Medical History: Objective: * Vitals: Assessment: * Assessment: 1. P ure hypercholesterolemia - E78.00 (Primary) Plan: * Treatment: * Procedure Codes: 3 6415 VENIPUNCT, ROUTINE* * * The named appointment provid er may or may not be the originator of this progress note, and it is not deemed complete until electronically signed by the appointment provider. Sign off status: Pending * Provider: Swathi Diaz MD Date: 0 08/03/2024 Generated for Brooke briones/Mansi/Venecia on: 0 02/02/2025 02:05 PM EDT
--- OUTSIDE RECORDS SUMMARY | 2025-01-26 10:55 | XMS_ITS ---
Author Organization Ronak Diaz MD Address [address] [facility] [address] [place] [phone] Care Team Providers Care Rib Matcher And Fitter Name Role Phone Ronak Diaz Primary Care Provider [phone] REASON FOR VISIT Labs Encounters Encounter Location Date Provider Diagnosis Ronak Diaz MD [facility] [address] [place] [phone] 01/26/2025 Ronak Diaz Plan Of Treatment Next Appt Details Provider Name:Ronak Mendoza ier, 02/23/2025 01:00:00 PM, [address] [place] [address] Drive, [address] [place] [address], [phone], Progress Notes * Alexis VAZQUEZ VDOB:1950 (74 yo M)Acc No.[id number]:01/26/2025 Patient: Alexis BRISENO V :1950 A ge:74 Y S ex:Male Address:[address] [place] [phone] * true * Date: Generated for Printi ng/Faxing/eTransmitting on: 0 02/02/2025 02:05 PM EDT
--- OUTSIDE RECORDS SUMMARY | 2025-02-02 03:15 | XMS_ITS ---
Author Organization Ronak Diaz MD Address [address] [place] [phone] Care Team Providers Care Emergency Room Tech Name Role Phone Ronak Diaz Primary Care Provider [phone] Results Component Value Reference Range Notes Complete Blood Count Auto Di ff Reviewed date:02/02/2025 01:51:14 PM Interpretation: Performing Lab:[facility], [address] [place] [phone] Notes/Report: White Blood Count 5.1 4.8-10.8 X10*3/uL Red Blood Count 4.01 4.60-5.80 X10*6/uL Hemoglobin 12.6 14.0-18.0 g/dl Hematocrit 37.9 42.0-52.0 % Mean Corpuscular Volume 94.5 80.0-98.0 fL Mean Corpuscular Hemoglobin 31.4 27.0-33.0 pg Mean Corpuscular HGB Conc 33.2 31.0-36.0 g/dl Red Cell Distribution Width 12.7 11.0-16.0 % Platelet Count 166 160-400 X10*3/uL Mean Platelet Volume 9.4 9.4-12.4 fL Neutrophils Percent Auto 49.1 45-73 % Imm Gran Pct Auto 0.2 0.0-0.4 % Lymphocytes Percent Auto 38.0 20-40 % Monocytes Percent Auto 8.2 2-11 % Eosinophils Percent Auto 3.7 0-4 % Basophils Percent Auto 0.8 0-2 % NRBC Pct Auto 0.0 0.0-0.2 /100WBC Neutrophils Absolute Auto 2.5 2.0-8.3 x10*3/u L Imm Gran Abs Auto 0.01 0.00-0.03 X10*3/uL Lymphocytes Absolute Auto 2.0 1.2-4.9 X10*3/u L Monocytes Absolute Auto 0.4 0.1-1.2 X10*3/uL Eosinophils Absolute Auto 0.2 0.0-0.4 X10*3/u L Basophils Absolute Auto 0.0 0.0-0.2 X10*3/uL NRBC Abs Auto 0.000 0.0-0.012 X10*3/uL Lipid Panel Reviewed date:02/02/2025 01:48:58 PM Interpretation: Performing Lab:[address] [phone] Notes/Report: Triglycerides 79 <150 mg/dL Desirable Triglyceride: less than 150 mg/dL Borderline High Triglyceride 150-199 mg/dL High Triglyceride: 200-499 mg/dL Very High Triglyceride: greater than or equal to 5OO mg/dL Cholesterol 248 <200 mg/dL Desirable Cholesterol: less than 200 mg/dL Borderline High Cholesterol: 200-239 mg/dL High Cholesterol: greater than 239 mg/dL LDL Cholesterol Calculated 179 <100 mg/dL Desirable LDL: less than 100 mg/dL Near Optimal/Above Optimal LDL: 110-129 mg/dL Borderline High LDL: 130-159 mg/dL High LDL: 160-189 mg/dL Very High LDL: greater than or equal to 190 mg/dL HDL Cholesterol 54 >40 mg/dL Desirable HDL: greater than 40 mg/dL Note: This HDL assay may give artificially low results in patients with liver disease. UA ClnCatch+Micro w/rflx Cul t Reviewed date:02/02/2025 01:50:47 PM Interpretation: Performing Lab:[facility], [address] [place] [phone] Notes/Report: Urine, Clean Catch Color Urine Yellow Appearance Urine Clear PH 5.5 5.0-9.0 Glucose Urine UA Negative Negative mg/dL Urine Blood Negative Negative Specific [place] - Urine 1.025 1.005-1.025 Urine Protein Negative Neg-Trace mg/dL Urine Ketones Negative Negative mg/dL Nitrite Urine Negative Negative Leukocyte Esterase Urine Negative Negative RBC Urine 0-2 0-2 /HPF WBC Urine 0-5 0-5 /HPF Squamous Epithelial Cell Urine 0-2 0-2 /HPF Bacteria Urine None Seen None Seen Hyaline Casts Urine 0-2 0-2 /LPF REASON FOR VISIT FASTING LABS Encounters Encounter Location Date Provider Diagnosis Ronak Diaz MD [address] [place] [address] [place] [phone] 02/02/2025 Ronak Diaz Blood tests for rout ine general physical examination Z00.00 ; Pure hypercholesterolemia E78.00 and Neutropenia, unspecified type D70.9 Assessments Encounter Date Diagnosis (ICD Code) Assessment Notes Treatment Notes Treatment Clinical Notes Section Notes 02/02/2025 Blood tests for rout ine general physical examination (ICD-10 - Z00.00) 02/02/2025 Pure hypercholesterolemia (ICD-10 - E78.00) 02/02/2025 Neutropenia, unspeci fied type (ICD-10 - D70.9) Plan Of Treatment Pending Test Test Name Order Date Comprehensive [place]. Panel Fast PSA,Total (Free>4and<10) 02/02/2025 Next Appt Details Provider Name:Ronak anderson, 02/23/2025 01:00:00 PM, [address] [place] [address], Suite [facility], [place], [place], [phone], Progress Notes * Alexis VAZQUEZ VDOB:1950 (74 yo M)Acc No.[id number]:02/02/2025 Progress Note Patient: Immanuel CHRISTENSEN Alexis Manzano Provider: Swathi Diaz MD :1950 A ge:74 Y S ex:Male Date:02/02/2025 Address:[address] [place], [place] [phone] Subjective: * Chief Complaints: * 1 . FASTING LABS. * Medical History: Objective: * Vitals: Assessment: * Assessment: 1. B lood tests for routine general physical examination - Z00.00 (Primary) 2 .?Pure hypercholesterolemia - E78.00 3 . N eutropenia, unspecified type - D70.9 Plan: * Treatment: 2. P ure hypercholesterolemia L AB: Comprehensive [place]. Panel Fast L AB: PSA,Total (Free>4and<10) L AB: Complete Blood Count Auto Diff (Collection Date & Time - 02/02/2025 07:15 AM) L AB: Lipid Panel (Collection Date & Time - 02/02/2025 07:15 AM) L AB: UA ClnCatch+Micro w/rflx Cult (Collection Date & Time - 02/02/2025 07:15 AM) 3. N eutropenia, unspecified type L AB: Comprehensive [place]. Panel Fast L AB: PSA,Total (Free>4and<10) L AB: Complete Blood Count Auto Diff (Collection Date & Time - 02/02/2025 07:15 AM) L AB: Lipid Panel (Collection Date & Time - 02/02/2025 07:15 AM) L AB: UA ClnCatch+Micro w/rflx Cult (Collection Date & Time - 02/02/2025 07:15 AM) * Procedure Codes: 3 6415 VENIPUNCT, ROUTINE* * * The named appointment provid er may or may not be the originator of this progress note, and it is not deemed complete until electronically signed by the appointment provider. Sign off status: Pending * Provider: Swathi Diaz MD Date: 02/02/2025 Generated for Brooke briones/Mansi/Sumititting on: 02/02/2025 02:05 PM EDT
[2025-02-02 13:02] LABS: MANUAL DIFF FLAG NO
[2025-02-02 13:07] LABS: Hematocrit 37.9 % (42.0-52.0); Hemoglobin 12.6 g/dl (14.0-18.0); Imm Gran Abs Auto 0.01 X10*3/uL (0.00-0.03); Imm Gran Pct Auto 0.2 % (0.0-0.4); Lymphocytes Absolute Auto 2.0 X10*3/uL (1.2-4.9); Mean Corpuscular HGB Conc 33.2 g/dl (31.0-36.0); Mean Corpuscular Hemoglobin 31.4 pg (27.0-33.0); Mean Corpuscular Volume 94.5 fL (80.0-98.0); NRBC Abs Auto 0.000 X10*3/uL (0.0-0.012); NRBC Pct Auto 0.0 /100WBC (0.0-0.2); Platelet Count 166 X10*3/uL (160-400); Red Blood Count 4.01 X10*6/uL (4.60-5.80); White Blood Count 5.1 X10*3/uL (4.8-10.8)
[2025-02-02 13:08] LABS: Appearance Urine Clear; Glucose Urine UA Negative (Negative); PH 5.5 (5.0-9.0); Specific Gravity - Urine 1.025 (1.005-1.025)
[2025-02-02 13:16] LABS: Alanine Aminotransferase 20 U/L (0-40); Albumin Level 4.1 g/dL (3.5-5.0); Alkaline Phosphatase 84 U/L (39-117); Anion Gap 9 (12-20); Aspartate Amino Transferase 28 U/L (5-37); Blood Urea Nitrogen 26 mg/dL (9-16); Calcium 8.9 mg/dL (8.4-10.2); Carbon Dioxide 29 mmol/L (22-29); Chloride 108 mmol/L (96-108); Cholesterol 248 mg/dL (<200); Estimated Glomerular Filt Rate > 60; HDL Cholesterol 54 mg/dL (>40); Potassium 4.2 mmol/L (3.3-5.1); Sodium 142 mmol/L (135-145); Total Protein 6.5 g/dL (6.5-8.0); Triglycerides 79 mg/dL (<150)
[2025-02-02 13:37] LABS: Prostate Specific Antigen 3.34 ng/mL (<0.05-4.0)
--- OUTSIDE RECORDS SUMMARY | 2025-02-02 14:06 | XMS_ITS | Patient Health Record ---
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 Role Phone Ronak Diaz Primary Care Provider Allergies No Known Allergies Results Component Value Reference Range Notes Blood Urea Nitrogen Reviewed date:04/06/2024 05:20:44 PM Interpretation: Performing Lab:[facility], [address] [place] [phone] Notes/Report: Blood Urea Nitrogen 23 9-16 mg/dL Liver Panel Reviewed date:08/03/2024 04:33:30 PM Interpretation: Performing Lab:[facility], [address] [place] [phone] Notes/Report: Bilirubin Total 1.0 0.0-1.0 mg/dL Bilirubin Direct 0.2 0.0-0.5 mg/dL Aspartate Amino Transferase 24 5-37 U/L Alanine Aminotransferase 17 0-40 U/L Total Protein 6.6 6.5-8.0 g/dL Albumin Level 4.0 3.5-5.0 g/dL Alkaline Phosphatase 97 39-117 U/L Lipid Panel with Reflex Reviewed date:08/03/2024 04:33:22 PM Interpretation: Performing Lab:[facility], [address] [place] [phone] Notes/Report: Triglycerides 83 <150 mg/dL Desirable Triglyceride: [...] low results in patients with liver disease. Curry Hong Reviewed date:08/03/2024 01:49:46 PM Interpretation: Performing Lab:[facility], [address] [place] [phone] Notes/Report: Curry Hong See Note Specimen held untested for 24 hours; Call to request Chemistry testing. Prostate Specific Antigen (N ot yet reviewed by provider) Interpretation: Performing Lab:[facility], [address] [place] [phone] Notes/Report: Prostate Specific Antigen 3.34 <0.05-4.0 ng/mL PSA methodology: Rg Alinity i Chemiluminescent Microparticle Immunoassay (CMIA) Comprehensive Met. Panel Reviewed date:02/02/2025 01:51:29 PM Interpretation: Performing Lab:[facility], [address] [place] [phone] Notes/Report: Sodium 142 135-145 mmol/L Potassium 4.2 3.3-5.1 mmol/L Chloride 108 96-108 mmol/L Carbon Dioxide 29 22-29 mmol/L Anion Gap 9 12-20 Blood Urea Nitrogen 26 9-16 mg/dL Creatinine 1.01 0.5-1.4 mg/dL Estimated Glomerular Filt Rate > 60 Chronic Kidney Disease: Estimated GFR < 60 mL/min/1.73m2 Severe Kidney Disease: Estimated GFR < 15 mL/min/1.73m2 Glucose Random 96 60-115 mg/dL Calcium 8.9 8.4-10.2 mg/dL Bilirubin Total 0.6 0.0-1.0 mg/dL Aspartate Amino Transferase 28 5-37 U/L Alanine Aminotransferase 20 0-40 U/L Total Protein 6.5 6.5-8.0 g/dL Albumin Level 4.1 3.5-5.0 g/dL Alkaline Phosphatase 84 39-117 U/L Complete Blood Count Auto Di ff Reviewed date:02/02/2025 01:51:14 PM Interpretation: Performing Lab:[facility], [address] [place] [phone] Notes/Report: White Blood Count 5.1 4.8-10.8 X10*3/uL [...] Panel Reviewed date:02/02/2025 01:48:58 PM Interpretation: Performing Lab:[facility], [address] [place] [phone] Notes/Report: Triglycerides 79 <150 mg/dL Desirable Triglyceride: [...] t Reviewed date:02/02/2025 01:50:47 PM Interpretation: Performing Lab:[facility], [address] [place] [phone] Notes/Report: Urine, Clean Catch Color Urine Yellow Appearance Urine Clear PH 5.5 5.0-9.0 Glucose Urine UA Negative Negative mg/dL Urine Blood Negative Negative Specific [place] - Urine 1.025 1.005-1.025 Urine Protein Negative Neg-Trace mg/dL Urine Ketones Negative Negative mg/dL Nitrite Urine Negative Negative Leukocyte Esterase Urine Negative Negative RBC Urine 0-2 0-2 /HPF WBC Urine 0-5 0-5 /HPF Squamous Epithelial Cell Urine 0-2 0-2 /HPF Bacteria Urine None Seen None Seen Hyaline Casts Urine 0-2 0-2 /LPF Reason For Referral No Information Medications Medication SIG (Take, Route, Frequency, Duration) Notes Start Date End Date Status Atorvastatin Calcium 20 MG take 1 tablet by mouth every day Orally Once a day for 90 days Active Immunizations Vaccine Route Administration Date Status Comme nts Flu Vaccine Unknown 05/15/2012 Administered [facility] Flu Vaccine IM Intramuscular 02/24/2015 Administered Fluarix Quadrivalent IM Intramuscular 05/20/2018 Adminyasmany moya pt was given the vaccine at [facility] on [address] in [place]. Prevnar 13 IM Intramuscular 01/08/2020 Administered Fluarix Quadrivalent IM Intramuscular 02/09/2020 Adminyasmany moya Fluarix Quadrivalent - 150 IM Intramuscular [...] Problem Carpal tunnel syndrome of right wrist (5694785291087 08) Carpal tunnel syndrome of right wrist (G56.01) Active confirmed Problem Carpal tunnel syndrome of left wrist (4381205682689 02) Carpal tunnel syndrome of left wrist (G56.02) Active confirmed Problem Contracture of palmar fascia (703799891) Dupuytrens contracture (M72.0) Active confirmed Problem 163240383 Neutropenia, unspecified type (D70.9) Active confirmed Problem 403195090 Pure hypercholesterolemia (E78.00) Active confirmed Problem 640107623 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 Vital Signs Blood pressure diastolic 60 mm Hg 02/03/2024 Height 69 in 02/03/2024 Blood pressure systolic 132 mm Hg 02/03/2024 Weight 151 lbs 02/03/2024 BMI 22.30 kg/m2 02/03/2024 Encounters Encounter Location Date Provider Diagnosis Ronak Diaz MD [address] [place], [place] [phone] 04/06/2024 Ronak Diaz Elevated BUN R79.9 Ronak Diaz MD [address] [place] [id number] 08/03/2024 Ronak Diaz Pure hypercholestero lemia E78.00 Ronak Diaz MD [address] [place] [phone] 02/02/2025 Ronak Diaz Blood tests for rout ine general physical examination Z00.00 ; Pure hypercholesterolemia E78.00 and Neutropenia, unspecified type D70.9 Ronak Diaz MD [address] [place] [address] Drive [address] [place] [id number] 02/03/2024 Ronak Diaz Pure hypercholestero lemia E78.00 ; Annual physical exam Z00.00 ; Coronary 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[place] artery of [place] heart with stable angina pectoris I25.118 ; Elevated BUN R79.9 and Depression screening Z13.31 Ronak Diaz MD [address] [place] [address] Drive [address] [place] [phone] 01/26/2025 Ronak Diaz Assessments Encounter Date Diagnosis (ICD Code) Assessment Notes Treatment Notes Treatment Clinical Notes Section Notes 04/06/2024 Elevated BUN (ICD-10 - R79.9) 08/03/2024 Pure hypercholesterolemia (ICD-10 - E78.00) 02/02/2025 Blood tests for rout ine general physical examination (ICD-10 - Z00.00) 02/03/2024 Pure hypercholesterolemia (ICD-10 - E78.00) will restart medication 02/03/2024 Annual physical exam (ICD-10 - Z00.00) labs reviewed and discussed with patient 02/02/2025 Pure hypercholesterolemia (ICD-10 - E78.00) 02/03/2024 Coronary artery dise ase of [place] artery of [place] heart with stable angina pectoris (ICD-10 - I25.118) 02/02/2025 Neutropenia, unspeci fied type (ICD-10 - D70.9) 02/03/2024 Elevated BUN (ICD-10 - R79.9) pending future lab, will monitor 02/03/2024 Depression screening (ICD-10 - Z13.31) negatve screen Plan Of Treatment Pending Test Test Name Order Date Electrocardiogram (EKG) 11/10/2015 Stress Test 01/04/2020 Comprehensive [place]. Panel Fast PSA,Total (Free>4and<10) 02/02/2025 Prostate Specific Antigen 02/02/2025 Next Appt Details Provider Name:Ronak Mendoza ier, 02/23/2025 01:00:00 PM, [address] [facility], [address], [place], [place], [phone], Insurance Providers Payer Name Payer Address Payer Phone Subscriber Number Group Number Insured Name Patient Relationship to Insured Coverage Start Date Coverage End Date [employer] [address] [place], [place] [phone] [id number] Alexis Edge Self - patient is the insured Medical (General) History Medical History History ICD Code colonoscopy refused 2014. 2015 2017 2019 cologard 2020
== END 2025-02-02 12:58 | disposition home or self-care (01) ==
LOC: HO.LNP 12:57
PROVIDERS: Visit Provider Internal Medicine
DX: Z00.00 Encounter for general adult medical examination without abnormal findings (principal); E78.00 Pure hypercholesterolemia, unspecified; D70.9 Neutropenia, unspecified; Z12.5 Encounter for screening for malignant neoplasm of prostate
CPT/HCPCS: 80053; 80061; 81001; 84153; 85025

== ENCOUNTER 2025-02-23 13:43 | Outpatient (REF) | payer BC, SELFPAY ==
--- OUTSIDE RECORDS SUMMARY | 2024-01-23 03:30 | XMS_ITS ---
Author Organization Ronak Diaz MD Address [address] [place] [phone] Care Team Providers Care Inspector Mechanical Name Role Phone Ronak Diaz Primary Care Provider [phone] Results Component Value Reference Range Notes Complete Blood Count Auto Di ff Reviewed date:01/23/2024 05:00:18 PM Interpretation: Performing Lab:[facility], [address] [place] [phone] Notes/Report: White Blood Count 3.9 4.8-10.8 X10*3/uL Red Blood Count 3.85 4.60-5.80 X10*6/uL Hemoglobin 12.4 14.0-18.0 g/dl Hematocrit 37.0 42.0-52.0 % Mean Corpuscular Volume 96.1 80.0-98.0 fL Mean Corpuscular Hemoglobin 32.2 27.0-33.0 pg Mean Corpuscular HGB Conc 33.5 31.0-36.0 g/dl Red Cell Distribution Width 12.6 11.0-16.0 % Platelet Count 138 160-400 X10*3/uL Mean Platelet Volume 9.6 9.4-12.4 fL Neutrophils Percent Auto 50.4 45-73 % Imm Gran Pct Auto 0.3 0.0-0.4 % Lymphocytes Percent Auto 35.8 20-40 % Monocytes Percent Auto 8.4 2-11 % Eosinophils Percent Auto 4.3 0-4 % Basophils Percent Auto 0.8 0-2 % NRBC Pct Auto 0.0 0.0-0.2 /100WBC Neutrophils Absolute Auto 2.0 2.0-8.3 x10*3/u L Imm Gran Abs Auto 0.01 0.00-0.03 X10*3/uL Lymphocytes Absolute Auto 1.4 1.2-4.9 X10*3/u L Monocytes Absolute Auto 0.3 0.1-1.2 X10*3/uL Eosinophils Absolute Auto 0.2 0.0-0.4 X10*3/u L Basophils Absolute Auto 0.0 0.0-0.2 X10*3/uL NRBC Abs Auto 0.000 0.0-0.012 X10*3/uL Comprehensive [place]. Panel Fa st Reviewed date:02/06/2024 08:19:40 AM Interpretation:NAOMY 02/02 Performing Lab:[facility], [address] [place] [phone] Notes/Report: Sodium 141 135-145 mmol/L Potassium 4.1 3.3-5.1 mmol/L Chloride 107 96-108 mmol/L Carbon Dioxide 28 22-29 mmol/L Anion Gap 10 12-20 Blood Urea Nitrogen 26 9-16 mg/dL Creatinine 0.91 0.5-1.4 mg/dL Estimated Glomerular Filt Rate > 60 NOTE: For -Citizen Of [place] individuals, multiply the result by 1.210. Chronic Kidney Disease: Estimated GFR < 60 mL/min/1.73m2 Severe Kidney Disease: Estimated GFR < 15 mL/min/1.73m2 Glucose Fasting 98 60-99 mg/dL Calcium 8.9 8.4-10.2 mg/dL Bilirubin Total 0.6 0.0-1.0 mg/dL Aspartate Amino Transferase 20 5-37 U/L Alanine Aminotransferase 17 0-40 U/L Total Protein 6.3 6.5-8.0 g/dL Albumin Level 3.8 3.5-5.0 g/dL Alkaline Phosphatase 86 39-117 U/L Lipid Panel Reviewed date:01/23/2024 12:17:12 PM Interpretation: Performing Lab:[facility], [address] [place] [phone] Notes/Report: Triglycerides 61 <150 mg/dL Desirable Triglyceride: less than 150 mg/dL Borderline High Triglyceride 150-199 mg/dL High Triglyceride: 200-499 mg/dL Very High Triglyceride: greater than or equal to 5OO mg/dL Cholesterol 250 <200 mg/dL Desirable Cholesterol: less than 200 mg/dL Borderline High Cholesterol: 200-239 mg/dL High Cholesterol: greater than 239 mg/dL LDL Cholesterol Calculated 178 <100 mg/dL Desirable LDL: less than 100 mg/dL Near Optimal/Above Optimal LDL: 110-129 mg/dL Borderline High LDL: 130-159 mg/dL High LDL: 160-189 mg/dL Very High LDL: greater than or equal to 190 mg/dL HDL Cholesterol 60 >40 mg/dL Desirable HDL: greater than 40 mg/dL Note: This HDL assay may give artificially low results in patients with liver disease. PSA,Total (Free>4and<10) Reviewed date:01/23/2024 12:17:22 PM Interpretation: Performing Lab:[address] [phone] Notes/Report: PSA,Total (Free>4and<10) 2.37 0.00-4.00 ng/mL A Free PSA was not performed: The percentage of Free PSA can be used to enhance the differentiation of prostate cancer from benign prostatic disease in subjects whose PSA levels are between 4.0 and 10.0 ng/mL. For subjects whose PSA levels are below 4.0 or above 10.0 ng/mL, the risk of prostate cancer is determined on the basis of the PSA alone. Therefore the % Free PSA is recommended only for those subjects whose PSA levels are between 4.0 and 10.0 ng/mL. PSA methodology: Rg Alinity i Chemiluminescent Microparticle Immunoassay (CMIA) UA ClnCatch+Micro w/rflx Cul t Reviewed date:01/23/2024 12:20:26 PM Interpretation: Performing Lab:[facility], [address] [place] [phone] Notes/Report: [id number] Urine, Clean Catch Color Urine Yellow Appearance Urine Clear PH 6.5 5.0-9.0 Glucose Urine UA Negative Negative mg/dL Urine Blood Negative Negative Specific [place] - Urine 1.025 1.005-1.025 Urine Protein Negative Neg-Trace mg/dL Urine Ketones Negative Negative mg/dL Nitrite Urine Negative Negative Leukocyte Esterase Urine Negative Negative RBC Urine 0-2 0-2 /HPF WBC Urine 0-5 0-5 /HPF Squamous Epithelial Cell Urine 0-2 0-2 /HPF Bacteria Urine None Seen None Seen Hyaline Casts Urine 0-2 0-2 /LPF REASON FOR VISIT FASTING LABS Medications Medication SIG (Take, Route, Frequency, Duration) Notes Start Date End Date Status Atorvastatin Calcium 20 MG TAKE 1 TABLET BY MOUTH EVERY DAY for 90 Not-Taking Immunizations Vaccine Route Administration Date Status Comme nts Fluarix Quadrivalent - 150 IM Intramuscular 01/23/2024 Adm inistered Encounters Encounter Location Date Provider Diagnosis Ronak Diaz MD [address] [place] [phone] 01/23/2024 Ronak Diaz Blood tests for rout ine general physical examination Z00.00 ; Encounter for immunization Z23 ; Pure hypercholesterolemia E78.00 and Neutropenia, unspecified type D70.9 Assessments Encounter Date Diagnosis (ICD Code) Assessment Notes Treatment Notes Treatment Clinical Notes Section Notes 01/23/2024 Blood tests for rout ine general physical examination (ICD-10 - Z00.00) 01/23/2024 Encounter for immunization (ICD-10 - Z23) 01/23/2024 Pure hypercholesterolemia (ICD-10 - E78.00) 01/23/2024 Neutropenia, unspeci fied type (ICD-10 - D70.9) Plan Of Treatment Next Appt Details Provider Name:Ronak anderson, 03/19/2025 01:45:00 PM, [address] [place] [address], [address], [phone], Provider Name:Ronak anderson, 02/18/2026 07:15:00 AM, [address] [place] [address], [address], [phone], Provider Name:Ronak anderson, 02/25/2026 01:00:00 PM, [address] [place] [address], [address], [place], [phone], Progress Notes * Alexis VAZQUEZ VDOB:1950 (74 yo M)Acc No.[id number]:01/23/2024 Progress Note Patient: Alexis BRISENO V Provider: Swathi Diaz MD :1950 A ge:73 Y S ex:Male Date:01/23/2024 Address:[address] [place], [place] [phone] Subjective: * Chief Complaints: * 1 . FASTING LABS. * Medical History: * Medications: N ot-Taking/PRN Atorvastatin Calcium 20 MG Tablet TAKE 1 TABLET BY MOUTH EVERY DAY Objective: * Vitals: Assessment: * Assessment: 1. E ncounter for immunization - Z23 (Primary) 2 . B lood tests for routine general physical examination - Z00.00 3 . P ure hypercholesterolemia - E78.00? 4. N eutropenia, unspecified type - D70.9 Plan: * Treatment: ?LAB: Lipid Panel (Collection Date & Time - 01/23/2024 07:30 AM) ?LAB: PSA,Total (Free>4and<10) (Collection Date & Time - 01/23/2024 07:30 AM) ?LAB: UA ClnCatch+Micro w/rflx Cult (Collection Date & Time - 01/23/2024 07:30 AM)2.?Pure hypercholesterolemia?LAB: Complete Blood Count Auto Diff (Collection Date & Time - 01/23/2024 07:30 AM) ?LAB: Comprehensive [place]. Panel Fast (Collection Date & Time - 01/23/2024 07:30 AM)* Ronak Diaz 01/23/2024 12:19:15 PM EDT > must see Solange Marley 02/06/2024 08:19:26 AM EDT > JAILENE CAME IN FOR HIS APPT WITH ?LAB: Lipid Panel (Collection Date & Time - 01/23/2024 07:30 AM) ?LAB: PSA,Total (Free>4and<10) (Collection Date & Time - 01/23/2024 07:30 AM) ?LAB: UA ClnCatch+Micro w/rflx Cult (Collection Date & Time - 01/23/2024 07:30 AM)3.?Neutropenia, unspecified type?LAB: Complete Blood Count Auto Diff (Collection Date & Time - 01/23/2024 07:30 AM) ?LAB: Comprehensive [place]. Panel Fast (Collection Date & Time - 01/23/2024 07:30 AM)* Ronak Diaz 01/23/2024 12:19:15 PM EDT > must see Solange Marley 02/06/2024 08:19:26 AM EDT > JAILENE CAME IN FOR HIS APPT WITH ?LAB: Lipid Panel (Collection Date & Time - 01/23/2024 07:30 AM) ?LAB: PSA,Total (Free>4and<10) (Collection Date & Time - 01/23/2024 07:30 AM) ?LAB: UA ClnCatch+Micro w/rflx Cult (Collection Date & Time - 01/23/2024 07:30 AM) * Immunizations: Fluarix Quadrivalent - 150 : 0.5 mL (Dose No:20) (Route: Intramuscular) given by Ana Laura Grace , Office Staff on Left Deltoid * Procedure Codes: 9 0686 FLU VAC NO PRSV 4 MINERVA 3 YRS+, G0008 ADMN FLU VAC NO FEE SCHED SAME DAY, 25110 VENIPUNCT, ROUTINE* * * The named appointment provid er may or may not be the originator of this progress note, and it is not deemed complete until electronically signed by the appointment provider. Sign off status: Pending * Provider: Swathi Diaz MD Date: 0 01/23/2024 Generated for Brooke briones/Mansi/Venecia on: 1 06:17 PM EDT
--- OUTSIDE RECORDS SUMMARY | 2024-02-03 11:30 | XMS_ITS ---
Author Organization Ronak Diaz MD Address [address] [place] [phone] Care Team Providers Care Long Lines Operator Name Role Phone Ronak Diaz Primary Care Provider Allergies No Known Allergies REASON FOR VISIT ANNUAL EXAM, Overdue for Cologuard, CBACK BUN, topped Atorvastatin 6 months ago Medications Medication SIG (Take, Route, Frequency, Duration) Notes Start Date End Date Status Atorvastatin Calcium 20 MG take 1 tablet by mouth every day Orally Once a day for 90 days Active Social History Tobacco Use: Social History Observation Description Date Details (start date - stop date) Former Smoker NA - NA Tobacco Use/Smoking Question Answer Notes Patient is a former smoker How long has it been since y ou last smoked? > 10 years Additional Findings: Tobacco Non-User Fo rmer smoker, currently using no form of tobacco Alcohol Screen Question Answer Notes Did you have a drink containing alcohol in the p ast year? No Points 0 Interpretation Negative Vital Signs Blood pressure systolic 132 mm Hg 02/03/20 24 Blood pressure diastolic 60 mm Hg 024 Height 69 in 02/03/2024 Weight 151 lbs 02/03/2024 BMI 22.30 kg/m2 02/03/2024 Encounters Encounter Location Date Provider Diagnosis Ronak Diaz MD [address] [place] [address] [place] [phone] 02/03/2024 Ronak Diaz Pure hypercholestero lemia E78.00 ; Annual physical exam Z00.00 ; Coronary 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[place] artery of [place] heart with stable angina pectoris I25.118 ; Elevated BUN R79.9 and Depression screening Z13.31 Assessments Encounter Date Diagnosis (ICD Code) Assessment Notes Treatment Notes Treatment Clinical Notes Section Notes 02/03/2024 Pure hypercholesterolemia (ICD-10 - E78.00) will restart medication 02/03/2024 Annual physical exam (ICD-10 - Z00.00) labs reviewed and discussed with patient 02/03/2024 Coronary artery dise ase of [place] artery of [place] heart with stable angina pectoris (ICD-10 - I25.118) 02/03/2024 Elevated BUN (ICD-10 - R79.9) pending future lab, will monitor 02/03/2024 Depression screening (ICD-10 - Z13.31) negatve screen Plan Of Treatment Medication Medication Name Sig Start Date Stop Date Notes Atorvastatin Calcium 20 MG take 1 tablet by mouth every day Orally Once a day for 90 days Treatment Notes Assessment Notes Pure hypercholesterolemia will restart m edication Annual physical exam labs reviewed and d iscussed with patient Elevated BUN pending future lab, will monitor Depression screening negatve screen Next Appt Details Follow Up: 1 Year, Reason: Provider Name:Ronak anderson, 03/19/2025 01:45:00 PM, [address] [place] [address], [address], [phone], Provider Name:Ronak anderson, 02/18/2026 07:15:00 AM, [address] [place] [address], [address], [phone], Provider Name:Ronak anderson, 02/25/2026 01:00:00 PM, [address] [place] [address], [address], [phone], Progress Notes * Alexis VAZQUEZ VDOB:1950 (73 yo M)Acc No.[id number]:02/03/2024 Progress Notes Patient: Alexis Rodriguez V Provider: Swathi Diaz MD :1950 A ge:73 Y S ex:Male Date:02/03/2024 Address:[address] [place] [address] Har[place]et Nichols [phone] Subjective: * Chief Complaints: * A NNUAL EXAMOverdue for CologuardCBACK BUNtopped Atorvastatin 6 months ago * HPI: D epression Screening: PHQ-9 L ittle interest or pleasure in doing things N ot at all, F eeling down, depressed, or hopeless N ot at all, T rouble falling or staying asleep, or sleeping too much N ot at all, F eeling tired or having little energy N ot at all, P oor appetite or overeating N ot at all, F eeling bad about yourself or that you are a failure, or have let yourself or your family down N ot at all, T rouble concentrating on things, such as reading the newspaper or watching television N ot at all, M oving or speaking so slowly that other people could have noticed; or the opposite, being so fidgety or restless that you have been moving around a lot more than usual N ot at all, T houghts that you would be better off or of hurting yourself in some way N ot at all, T otal Score 0 . I nterpretation and Intervention D epression Screening Findings N egative, F ollow-Up for Depression : review of PHQ-9 found negative result, no follow-up needed. patient is a 73 yo male here for annual visit with review of recent labs and follow up of chronic issues,stopped atorvastatin. C ommunication Needs: Communication Needs D oes the patient have a hearing impairment N o, D oes the patient have a vision impairment? Y es, I f yes, what is the vision impairment? G lasses, D oes the patient have a cognition impairment? N o. F all Risk: History H ave you had any falls with injury in the past year? N o, H ave you had two or more falls in the past year? N o. S ALEXX Questions: SDOH Questions I n the past year have you been worried about losing housing? N o, I n the past year have you or any family members you live with been unable to get any of the following when it was really needed? Check all that apply: N one. * ROS: G eneral/Constitutional: Patient denies f atigue , headache. C hange in appetite?denies. C hills d enies. F ever d enies. O phthalmologic: Blurred vision d enies. D ischarge d enies. P ain d enies. E NT: Patient denies d ecreased sense of smell , any loss of taste , sore throat. D ecreased hearing d enies. S ore throat d enies. S wollen glands d enies. E ndocrine: Cold intolerance d enies. E xcessive thirst d enies. H eat intolerance d enies. W eight loss d enies. R espiratory: Cough d enies. S hortness of breath at rest d enies. S hortness of breath with exertion d enies. W heezing d enies. C ardiovascular: Chest pain at rest d enies. C hest pain with exertion?admits comes with exertion severe and stops and it goes away with rest. had evaluation by cardioogy and was negative. had cat of chest and minimal plaque. nochange in 4 years.. I rregular heartbeat d enies. S hortness of breath d enies. G astrointestinal: Abdominal pain d enies. C hange in bowel habits d enies. D iarrhea d enies. N ausea d enies. R ectal bleeding d enies. V omiting d enies . G enitourinary: Blood in urine d enies. D ifficulty urinating d enies. F requent urination d enies. M usculoskeletal: Patient denies m uscle aches. P ainful joints d enies. W eakness d enies. P eripheral Vascular: Patient denies r ed and blue toes. S kin: Dry skin d enies. I tching d enies. D enies?Mole(s), changes in moles, new moles or any lesions of concern. D enies P hotosensitivity. R ashia d enies. N eurologic: Dizziness d enies. F ainting d enies. H eadache?denies. * Medical History: * Surgical History: * Hospitalization/Major Diagno stic Procedure: * Family History: F ather: 85 yrs. M other: 89 yrs, diagnosed with Hypertension. 1 brother(s) . . 1 SISTER, Denies mental health/substance abuse family history, Denies mental health/substance abuse family history, Denies mental health/substance abuse family history, Denies mental health/substance abuse family history, Denies mental health/substance abuse family history. * Social History: T obacco Use: T obacco Use/Smoking P atient is a f ormer smoker, H ow long has it been since you last smoked? > 10 years, A dditional Findings: Tobacco Non-User F ormer smoker, currently using no form of tobacco. D rugs/Alcohol: A lcohol Screen D id you have a drink containing alcohol in the past year? N o, P oints 0 , I nterpretation N egative. M iscellaneous: C affeine: yes, frequency:,2-3 cups including tea. no Children. no Community involvements. 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 Housing: owning. Living with: spouse. Marital status: . Occupation: retired. Pets: none. no Travel outside of the [place]. * Medications: N ot-Taking/PRNAtorvastatin Calcium 20 MG Tablet TAKE 1 TABLET BY MOUTH EVERY DAY Medication List reviewed and reconciled with the patientNot-Taking/PRN Atorvastatin Calcium 20 MG Tablet TAKE 1 TABLET BY MOUTH EVERY DAY Medication List reviewed and reconciled with the patient * Allergies: N .K.D.A.yes[Allergies Verified] Objective: * Vitals: H t: 69, Wt:151, BMI:22.30, BP:132/60. * P ast Orders: L ab:Complete Blood Count Auto Diff (Order Date - 01/23/2024) (Collection Date - 01/23/2024) Value Reference Range White Blood Count 3.9 L 4.8-10.8 - X10*3/uL Red Blood Count 3.85 L 4.60-5.80 - X10*6/uL Hemoglobin 12.4 L 14.0-18.0 - g/dl Hematocrit 37.0 L 42.0-52.0 - % Mean Corpuscular Volume 96.1 80.0-98.0 - fL Mean Corpuscular Hemoglobin 32.2 27.0-33.0 - pg Mean Corpuscular HGB Conc 33.5 31.0-36.0 - g/ dl Red Cell Distribution Width 12.6 11.0-16.0 - % Platelet Count 138 L 160-400 - X10*3/uL Mean Platelet Volume 9.6 9.4-12.4 - fL Neutrophils Percent Auto 50.4 45-73 - % Imm Gran Pct Auto 0.3 0.0-0.4 - % Lymphocytes Percent Auto 35.8 20-40 - % Monocytes Percent Auto 8.4 2-11 - % Eosinophils Percent Auto 4.3 H 0-4 - % Basophils Percent Auto 0.8 0-2 - % NRBC Pct Auto 0.0 0.0-0.2 - /100WBC Neutrophils Absolute Auto 2.0 2.0-8.3 - x10* 3/uL Imm Gran Abs Auto 0.01 0.00-0.03 - X10*3/uL Lymphocytes Absolute Auto 1.4 1.2-4.9 - X10* 3/uL Monocytes Absolute Auto 0.3 0.1-1.2 - X10*3/ uL Eosinophils Absolute Auto 0.2 0.0-0.4 - X10* 3/uL Basophils Absolute Auto 0.0 0.0-0.2 - X10*3/ uL NRBC Abs Auto 0.000 0.0-0.012 - X10*3/uL L ab:Lipid Panel (Order Date - 01/23/2024) (Collection Date - 01/23/2024) Value Reference Range Triglycerides 61 <150 - mg/dL Cholesterol 250 H <200 - mg/dL LDL Cholesterol Calculated 178 H <100 - mg/dL HDL Cholesterol 60 >40 - mg/dL L ab:PSA,Total (Free>4and<10) (Order Date - 01/23/2024) (Collection Date - 01/23/2024) Value Reference Range PSA,Total (Free>4and<10) 2.37 0.00-4.00 - ng/ mL L ab:UA ClnCatch+Micro w/rflx Cult (Order Date - 01/23/2024) (Collection Date - 01/23/2024) Value Reference Range Color Urine Yellow - Appearance Urine Clear - PH 6.5 5.0-9.0 - Glucose Urine UA Negative Negative - mg/dL Urine Blood Negative Negative - Specific [place] - Urine 1.025 1.005-1.025 - Urine Protein Negative Neg-Trace - mg/dL Urine Ketones Negative Negative - mg/dL Nitrite Urine Negative Negative - Leukocyte Esterase Urine Negative Negative - RBC Urine 0-2 0-2 - /HPF WBC Urine 0-5 0-5 - /HPF Squamous Epithelial Cell Urine 0-2 0-2 - /HP F Bacteria Urine None Seen None Seen - Hyaline Casts Urine 0-2 0-2 - /LPF * Examination: G eneral Examination: GENERAL APPEARANCE: w ell developed, well nourished, in no acute distress. HEAD: n ormocephalic, atraumatic. EYES: p upils equal, round, reactive to light and accommodation, sclera non-icteric. EARS: n ormal. ORAL CAVITY: m ucosa moist. THROAT: c lear. NECK/THYROID: n vickey supple, full range of motion, no cervical lymphadenopathy, no bruits. SKIN: w arm and dry, no suspicious lesions. HEART: r egular rate and rhythm, S1, S2 normal, no murmurs.? LUNGS: c lear to auscultation bilaterally. ABDOMEN: s oft, nontender, nondistended, bowel sounds present, normal, no organomegaly , no masses palpable. RECTAL EXAM: n ormal tone, no external hemorrhoids, no masses palpable, prostate normal, stool guaiac negative. MALE GENITOURINARY: n o testicular mass, testes descended bilaterally. EXTREMITIES: n o clubbing, cyanosis, or edema. NEUROLOGIC: n onfocal, motor strength normal upper and lower extremities, sensory exam intact. Assessment: * Assessment: 1. A nnual physical exam - Z00.00 (Primary) 2 . P ure hypercholesterolemia - E78.00?3. 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 E levated BUN - R79.9 5 . D epression screening - Z13.31 Plan: * Treatment: 2. P ure hypercholesterolemia Continue Atorvastatin Calcium Tablet, 20 MG, take 1 tablet by mouth every day, Orally, Once a day, 90 days, 90, Refills 3. Notes: will restart medication 3. E levated BUN L AB: Blood Urea Nitrogen (Ordered for 04/04/2024) Notes: pending future lab, will monitor 4. D epression screening Notes: negatve screen * Procedure Codes: 3 6415 VENIPUNCT, ROUTINE* * Follow Up: 1 Year * * Sign off status: Completed true * Provider: Swathi Diaz MD Date: 0 02/03/2024 Generated for Brooke briones/Mansi/Venecia on: 1 06:17 PM EDT History and Physical Notes * HPI (History of Present Illness) Category Sub-Category Detail Notes Category Not es Depression Screening PHQ-9 Little inte rest or pleasure in doing things: Not at all patient is a 73 yo male here for annual visit with review of recent labs and follow up of chronic issues,stopped atorvastatin. Feeling down, depressed, or hopeless: No t at all Trouble falling or staying asleep, or sl eeping too much: Not at all Feeling tired or having little energy: N ot at all Poor appetite or overeating: Not at all Feeling bad about yourself o r that you are a failure, or have let yourself or your family down: Not at all Trouble concentrating on thi ngs, such as reading the newspaper or watching television: Not at all Moving or speaking so slowly that other people could have noticed; or the opposite, being so fidgety or restless that you have been moving around a lot more than usual: Not at all Thoughts that you would be b chano off or of hurting yourself in some way: Not at all Total Score: 0 Interpretation and Intervention Depression Scree roberto Findings: Negative Follow-Up for Depression: : review of PH Q-9 found negative result, no follow-up needed SDOH Questions SDOH Questions In the past year have you been worried about losing housing?: No In the past year have you or any family members you live with been unable to get any of the following when it was really needed? Check all that apply:: None Fall Risk History Have you had any falls with injury i n the past year?: No Have you had two or more falls in the year?: No Communication Needs Communication Needs Does the patient have a hearing impairment: No Does the patient have a vision impairmen t?: Yes If yes, what is the vision impairment?: Glasses Does the patient have a cognition impair ment?: No Examination Category Sub-Category Detail Notes Category Not es General Examination GENERAL APPEARANCE: well dev eloped, well nourished, in no acute distress HEAD: normocephalic, atrau matic EYES: pupils equal, round, reactive to light and accommodation, sclera non-icteric EARS: normal THROAT: clear NECK/THYROID: neck supple, full ra nge of motion, no cervical lymphadenopathy, no bruits HEART: regular rate and rhy thm, S1, S2 normal, no murmurs LUNGS: clear to auscultatio n bilaterally ABDOMEN: soft, nontender, non distended, bowel sounds present, normal, no organomegaly , no masses palpable NEUROLOGIC: nonfocal, motor stre ngth normal upper and lower extremities, sensory exam intact SKIN: warm and dry, no reyna picious lesions EXTREMITIES: no clubbing, cyanosi s, or edema MALE GENITOURINARY: no testicular mass, testes descended bilaterally RECTAL EXAM: normal tone, no exte rnal hemorrhoids, no masses palpable, prostate normal, stool guaiac negative ORAL CAVITY: mucosa moist
--- OUTSIDE RECORDS SUMMARY | 2024-04-06 04:00 | XMS_ITS ---
Author Organization Ronak Diaz MD Address [address] [place] [phone] Care Team Providers Care Continuous Wave Operator Name Role Phone Ronak Diaz Primary Care Provider [phone] Results Component Value Reference Range Notes Blood Urea Nitrogen Reviewed date:04/06/2024 05:20:44 PM Interpretation: Performing Lab:[facility], [address] [place] [phone] Notes/Report: Blood Urea Nitrogen 23 9-16 mg/dL REASON FOR VISIT BUN Medications Medication SIG (Take, Route, Frequency, Duration) Notes Start Date End Date Status Atorvastatin Calcium 20 MG take 1 tablet by mouth every day Orally Once a day for 90 days Active Encounters Encounter Location Date Provider Diagnosis Ronak Diaz MD [address] [place] [phone] 04/06/2024 Ronak Diaz Elevated BUN R79.9 Assessments Encounter Date Diagnosis (ICD Code) Assessment Notes Treatment Notes Treatment Clinical Notes Section Notes 04/06/2024 Elevated BUN (ICD-10 - R79.9) Plan Of Treatment Next Appt Details Provider Name:Ronak Mendoza ier, 03/19/2025 01:45:00 PM, [address], [address], [place], [place], [phone], Provider Name:Ronak Mendoza ier, 02/18/2026 07:15:00 AM, [address], [address], [place], [place], [phone], Provider Name:Ronak Mendoza ier, 02/25/2026 01:00:00 PM, [address], [address], [place], [place], [phone], Progress Notes * Alexis VAZQUEZ VDOB:1950 (74 yo M)Acc No.[id number]:04/06/2024 Progress Note Patient: Alexis BRISENO V Provider: Swathi Diaz MD :1950 A ge:73 Y S ex:Male Date:04/06/2024 Address:[address] [place], [place] [phone] Subjective: * Chief Complaints: * 1 . [...] Diaz MD Date: 06/07/2023 Generated for Brooke briones/Mansi/Katarzynasmitting on: 06:17 PM EDT
--- OUTSIDE RECORDS SUMMARY | 2024-08-03 03:00 | XMS_ITS ---
Author Organization Ronak Diaz MD Address [address] [place], [place] [phone] Care Team Providers Care School Age Lead Teacher Name Role Phone Ronak Diaz Primary Care Provider Results Component Value Reference Range Notes Liver Panel Reviewed date:08/03/2024 04:33:30 PM Interpretation: Performing Lab:[facility], [address] [place] [phone] Notes/Report: Bilirubin Total 1.0 0.0-1.0 mg/dL Bilirubin Direct 0.2 0.0-0.5 mg/dL Aspartate Amino Transferase 24 5-37 U/L Alanine Aminotransferase 17 0-40 U/L Total Protein 6.6 6.5-8.0 g/dL Albumin Level 4.0 3.5-5.0 g/dL Alkaline Phosphatase 97 39-117 U/L Lipid Panel with Reflex Reviewed date:08/03/2024 04:33:22 PM Interpretation: Performing Lab:[facility], [address] [place] [phone] Notes/Report: Triglycerides 83 <150 mg/dL Desirable Triglyceride: [...] Location Date Provider Diagnosis Ronak Diaz MD [address] [place] [phone] 08/03/2024 Ronak Diaz Pure hypercholestero lemia E78.00 Assessments Encounter Date Diagnosis (ICD Code) Assessment Notes Treatment Notes Treatment Clinical Notes Section Notes 08/03/2024 Pure hypercholesterolemia (ICD-10 - E78.00) Plan Of Treatment Next Appt Details Provider Name:Ronak anderson, 03/19/2025 01:45:00 PM, [address] [place] [address], [address], [phone], Provider Name:Ronak anderson, 02/18/2026 07:15:00 AM, [address] [place] [address], [phone], Provider Name:Ronak anderson, 02/25/2026 01:00:00 PM, [address] [place] [address], [address], [phone], Progress Notes * Alexis VAZQUEZ VDOB:1950 (74 yo M)Acc No.[id number]:08/03/2024 Progress Note Patient: Immanuel CHRISTENSEN Alexis Manzano Provider: Swathi Diaz MD :1950 A ge:74 Y S ex:Male Date:08/03/2024 Address:[address] [place] [address] Harjeet Nichols [id number] Subjective: * Chief Complaints: * 1 . [...] MD Date: 0 08/03/2024 Generated for Brooke briones/Mansi/Sumititting on: 06:18 PM EDT
--- OUTSIDE RECORDS SUMMARY | 2025-01-26 10:55 | XMS_ITS ---
Author Organization Ronak Diaz MD Address [address] [place] [phone] Care Team Providers Care Obstetrical Anesthesiologist Name Role Phone Ronak Diaz Primary Care Provider REASON FOR VISIT Labs Encounters Encounter Location Date Provider Diagnosis Ronak Diaz MD [address] [facility] [address] [place] [phone] 01/26/2025 Ronak Diaz Plan Of Treatment Next Appt Details Provider Name:Ronak Mendoza ier, 03/19/2025 01:45:00 PM, [address] [place] [address], [address] [place] [address], [phone], Provider Name:Ronak Mendoza ier, 02/18/2026 07:15:00 AM, [address] [place] [address], [address], [phone], Provider Name:Ronak Mendoza ier, 02/25/2026 01:00:00 PM, [address] [place] [address], [address], [phone], Progress Notes * Alexis VAZQUEZ VDOB:1950 (74 yo M)Acc No.[id number]:01/26/2025 Patient: Alexis BRISENO Natacha :1950 A ge:74 Y S ex:Male Address:[address] [place] [phone] * true * Date: Generated for Brooke briones/Mansi/Sumititting on: 06:18 PM EDT
--- OUTSIDE RECORDS SUMMARY | 2025-02-02 03:15 | XMS_ITS ---
Author Organization Ronak Diaz MD Address [address] [place] [phone] Care Team Providers Care Biodiesel Operations Manager Name Role Phone Ronak Diaz Primary Care Provider Results Component Value Reference Range Notes Complete Blood Count Auto Di ff Reviewed date:02/02/2025 01:51:14 PM Interpretation: Performing Lab:[facility], [address] [place] [phone] Notes/Report: White Blood Count 5.1 4.8-10.8 X10*3/uL [...] Panel Reviewed date:02/02/2025 01:48:58 PM Interpretation: Performing Lab:[address] [phone] Notes/Report: Triglycerides 79 <150 mg/dL Desirable Triglyceride: [...] t Reviewed date:02/02/2025 01:50:47 PM Interpretation: Performing Lab:[facility], [address] [place] [phone] Notes/Report: Urine, Clean Catch Color Urine Yellow Appearance Urine Clear PH 5.5 5.0-9.0 Glucose Urine UA Negative Negative mg/dL Urine Blood Negative Negative Specific [place] - Urine 1.025 1.005-1.025 Urine Protein Negative [...] Location Date Provider Diagnosis Ronak Diaz MD [address] [place] [phone] 02/02/2025 Ronak Diaz Blood tests for rout [...] Pending Test Test Name Order Date Comprehensive [place]. Panel Fast 5 PSA,Total (Free>4and<10) 02/02/2025 Next Appt Details Provider Name:Ronak anderson, 03/19/2025 01:45:00 PM, [address] [place] [address], [address], [phone], Provider Name:Ronak anderson, 02/18/2026 07:15:00 AM, [address] [place] [address], [address], [phone], Provider Name:Ronak anderson, 02/25/2026 01:00:00 PM, [address] [place] [address], [address], [phone], Progress Notes * Alexis VAZQUEZ VDOB:1950 (74 yo M)Acc No.[id number]:02/02/2025 Progress Note Patient: Alexis BRISENO V Provider: Swathi Diaz MD :1950 A ge:74 Y S ex:Male Date:02/02/2025 Address:[address] [place], [place] [phone] Subjective: * Chief Complaints: * 1 . FASTING LABS. * Medical History: Objective: * Vitals: Assessment: * Assessment: 1. B lood tests for routine general physical examination - Z00.00 (Primary) 2 .?Pure hypercholesterolemia - E78.00 3 . N eutropenia, unspecified type - D70.9 Plan: * Treatment: 2. P ure hypercholesterolemia L AB: Comprehensive [place]. Panel Fast L AB: PSA,Total (Free>4and<10) L AB: Complete Blood Count Auto Diff (Collection Date & Time - 02/02/2025 07:15 AM) L AB: Lipid Panel (Collection Date & Time - 02/02/2025 07:15 AM) L AB: UA ClnCatch+Micro w/rflx Cult (Collection Date & Time - 02/02/2025 07:15 AM) 3. N eutropenia, unspecified type L AB: Comprehensive [place]. Panel Fast L AB: PSA,Total (Free>4and<10) L [...] * Provider: Swathi Diaz MD Date: 0 02/02/2025 Generated for Printi ng/Faxing/eTransmitting on: 1 06:18 PM EDT
--- NOTE | ~2025-02-23 | XR_ITS ---
EXAMINATION: XR CERVICAL SPINE 4-5 VIEWS HISTORY: BONE PAIN COMPARISON: There are no prior studies available for comparison. FINDINGS: AP, lateral, and open-mouth odontoid views of the cervical spine are submitted. Osseous mineralization is normal. Seven cervical vertebral bodies are identified maintaining normal height and alignment without evidence of fracture or subluxation. There is moderate degenerative disc disease with disc space narrowing and osteophyte formation. There is severe narrowing of the left C2-3 and C3-4 neural foramen secondary to uncovertebral joint hypertrophy and facet osteoarthritis. There is mild neural foraminal narrowing at the remaining levels. The odontoid and lateral masses of C1 are intact. There is no prevertebral soft tissue swelling. XR/XR cervical spine 4V IMPRESSION: Degenerative disc disease as described. Electronically signed by: oK Garay MD 02/23/2025 02:13 PM EDT
--- OUTSIDE RECORDS SUMMARY | 2025-02-23 09:00 | XMS_ITS ---
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 XR cervical spine 4V Reviewed date:02/23/2025 02:24:49 PM Interpretation: Performing Lab: Notes/Report: [address] [address] XRay Report Signed Patient: Alexis Vazquez MR#: [id number] 339 : 1950 Acct:[id number] Age/Sex: 74 / M ADM Date: 02/23/25 Loc: ANGELA Attending Dr: Ronak Diaz MD Ordering Physician: Ronak Diaz MD Date of Service: 02/23/25 Procedure(s): XR cervical spine 4V Accession Number(s): [id number] cc: Ronak Diaz MD Reason for Exam: BONE PAIN EXAMINATION: XR CERVICAL SPINE 4-5 VIEWS HISTORY: BONE PAIN COMPARISON: There are no prior studies available for comparison. FINDINGS: AP, lateral, and open-mouth odontoid views of the cervical spine are submitted. Osseous mineralization is normal. Seven cervical vertebral bodies are identified maintaining normal height and alignment without evidence of fracture or subluxation. There is moderate degenerative disc disease with disc space narrowing and osteophyte formation. There is severe narrowing of the left C2-3 and C3-4 neural foramen secondary to uncovertebral joint hypertrophy and facet osteoarthritis. There is mild neural foraminal narrowing at the remaining levels. The odontoid and lateral masses of C1 are intact. There is no prevertebral soft tissue swelling. XR/XR cervical spine 4V IMPRESSION: Degenerative disc disease as described. Electronically signed by: Ko Garay MD 02/23/2025 02:13 PM EDT Dictated By: Ko Garay MD Signed By: <Electronically signed by Ko Garay MD in OV> 02/23/25 1413 DD/ 1402 TD/TT: 02/23/25 1408 Loin Puller: [place] [address] XRay Report Signed Patient: Chauncey Vazquez MR#: [id number] 339 : 1950 Acct:[id number] Age/Sex: 74 / M ADM Date: 02/23/25 Loc: HO.XRAY Attending Dr: Ronak Diaz MD Ordering Physician: Ronak Diaz MD Date of Service: 02/23/25 Procedure(s): XR cervical spine 4V Accession Number(s): [id number] cc: Ronak Diaz MD Reason for Exam: BON E PAIN EXAMINATION: XR CERV ICAL SPINE 4-5 VIEWS HISTORY: BONE PAIN COMPARISON: There ar e no prior studies available for comparison. FINDINGS: AP, latera l, and open-mouth odontoid views of the cervical spine are submitted. Osseous mineralization is normal. Seven cervical vertebral bodies are identified maintaining normal height and alignment without evidence of fracture or subluxation. There is moderate degenerative disc disease with disc space narrowing and osteophyte formation. There is severe narrowing of the left C2-3 and C3-4 neural foramen secondary to uncovertebral joint hypertrophy and facet osteoarthritis. Ther e is mild neural foraminal narrowing at the remaining levels. Th e odontoid and lateral masses of C1 are intact. There is no preverte bral soft tissue swelling. X R/XR cervical spine 4V IMPRESSION: Degenerative disc disease as described. Electronically winter d by: Ko Garay MD 02/23/2025 02:13 PM EDT RP Dictated By: Ko Garay MD Signed By: <Electronically signed by Ko Garay MD in OV> 02/23/25 1413 DD/ 1402 TD/TT: 02/23/25 1408 Loin Puller: REASON FOR VISIT ANNUAL EXAM/ must see PSA never started the Atorvastatin, neck pain x 2 months, Patient wants to wait until a later date for the Flu Vaccine Medications Medication SIG (Take, Route, Frequency, Duration) Notes Start Date End Date Status Atorvastatin Calcium 20 MG take 1 tablet by mouth every day Orally Once a day for 90 days Not-Taking Social History Tobacco Use: Social History Observation [...] Interpretation Negative Vital Signs Blood pressure systolic 112 mm Hg 02/24/20 25 Blood pressure diastolic 60 mm Hg 025 Height 69 in 02/23/2025 Weight 150 lbs 02/23/2025 BMI 22.15 kg/m2 02/23/2025 Encounters Encounter Location Date Provider Diagnosis Ronak Diaz MD [address] [place] [address] [address] [place], [place] [phone] 02/23/2025 Ronak Diaz Adult general medica l examination Z00.00 ; Bone pain M89.8X9 ; Pure hypercholesterolemia E78.00 and Rising PSA level R97.20 Assessments Encounter Date Diagnosis (ICD Code) Assessment Notes Treatment Notes Treatment Clinical Notes Section Notes 02/23/2025 Adult general medica l examination (ICD-10 - Z00.00) 02/23/2025 Bone pain (ICD-10 - M89.8X9) x-ray order given to patient, NUC whole body scan order faxed to [facility] / unable to tunrn neck. getting severe pain in neck with movement. am conderned with the rising psa could be metastic disease / will get the approprate studies 02/23/2025 Pure hypercholesterolemia (ICD-10 - E78.00) doesn't take statins 02/23/2025 Rising PSA level (IC D-10 - R97.20) prostate exam is normal but am concerned with the severe bone pain and lethargy that he could have metastatic prostate cancer Plan Of Treatment Treatment Notes Assessment Notes Bone pain x-ray order given to patient, NUC whole body scan order faxed to [facility] / unable to tunrn neck. getting severe pain in neck with movement. am conderned with the rising psa could be metastic disease / will get the approprate studies Pure hypercholesterolemia doesn't take s tatins Rising PSA level prostate exam is nor mal but am concerned with the severe bone pain and lethargy that he could have metastatic prostate cancer Pending Test Test Name Order Date RHEUMATOID FACTOR 02/23/2025 LYME DISEASE AB, TOTAL W/REFL WB (IGG, I GM) 02/23/2025 CRP 02/23/2025 NUC WHOLE BODY SCAN BONE 02/23/2025 Next Appt Details Follow Up: 3 Weeks, Reason: Provider Name:Ronak anderson, 03/19/2025 01:45:00 PM, [address] [place] [address], [address] [place] [address], [phone], Provider Name:Ronak anderson, 02/18/2026 07:15:00 AM, [address] [place] [address], [address] [place] [address], [phone], Provider Name:Ronak anderson, 02/25/2026 01:00:00 PM, [address] [place] [address], [address] [place] [address] [place], [phone], Progress Notes * Alexis VAZQUEZ VDOB:1950 (74 yo M)Acc No.[id number]:02/23/2025 Progress Notes Patient: Alexis BRISENO V Provider: Swathi Diaz MD :1950 A ge:74 Y S ex:Male Date:02/23/2025 Address:[address] [place], [place] [phone] Subjective: * Chief Complaints: * 1 . ANNUAL EXAM/ must see PSA never started the Atorvastatin. 2. Neck pain x 2 months. 3. Patient wants to wait until a later date for the Flu Vaccine. * HPI: D epression Screening: PHQ-9 L [...] PHQ-9 found negative result, no follow-up needed. C ommunication Needs: Communication Needs D oes [...] needed? Check all that apply: N one. S ymptom(s): patient i a 74 yo male here for annual visit with review of recent labs and follow up of chronic issues p ain in neck and hips for 3 months. severe. taking energy. base of skull nd into shoulders. getting spasms of pain in neck. * ROS: G eneral/Constitutional: Patient denies c hills, fatigue, fever, headache. C hange in appetite d enies. C hills d enies. F ever d enies. O phthalmologic: Blurred vision d enies. D ischarge d enies. P ain d enies. E NT: Patient denies d ecreased sense of smell, any loss of taste, sore throat. D ecreased hearing d enies. S ore throat d enies. S wollen glands?denies. E ndocrine: Cold intolerance d enies. E xcessive thirst d enies. H eat intolerance d enies. W eight loss d enies. R espiratory: Cough d enies. S hortness of breath at rest d enies. S hortness of breath with exertion d enies. W heezing d enies. C ardiovascular: Chest pain at rest d enies. C hest pain with exertion?denies. I rregular heartbeat d enies. S hortness of breath d enies. ? G astrointestinal: Abdominal pain d enies. C hange in bowel habits d enies. D iarrhea d enies. N ausea d enies. R ectal bleeding d enies. V omiting d enies . G enitourinary: Blood in urine d enies. D ifficulty urinating d enies. F requent urination d enies. M usculoskeletal: Painful joints d enies. W eakness d enies. ? P eripheral Vascular: Patient denies r ed and blue toes. S kin: Dry skin d enies. I tching d enies. D enies?Mole(s), changes in moles, new moles or any lesions of concern. D enies P hotosensitivity. R ashia d enies. N eurologic: Dizziness d enies. F ainting d enies. H eadache?denies. * Medical History: C olonoscopy refused 2013. 2014 2017 2019 cologard 2019. * Family History: F ather: 85 yrs. [...] C affeine: yes, frequency:,2-3 cups including tea. Children: no. Community involvements: no. 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 Housing: owning. Living with: spouse. Marital status: . Occupation: retired. Pets: none. * Medications: N ot-Taking/PRN Atorvastatin Calcium 20 MG Tablet take 1 tablet by mouth every day Orally Once a day * Allergies: N .K.D.A. Objective: * Vitals: H t: 69, Wt: 150, BMI:22.15, BP:112/60, Wt-k.04. * P ast Orders: L ab:UA ClnCatch+Micro w/rflx Cult (Order Date - 02/02/2025) (Collection Date & Time - 02/02/2025 07:15 AM) Value Reference Range Color Urine Yellow - Appearance Urine Clear - PH 5.5 5.0-9.0 - Glucose Urine UA Negative Negative - mg/dL Urine Blood Negative Negative - Specific [place] - Urine 1.025 1.005-1.025 - Urine Protein Negative Neg-Trace - mg/dL Urine Ketones Negative Negative - mg/dL Nitrite Urine Negative Negative - Leukocyte Esterase Urine Negative Negative - RBC Urine 0-2 0-2 - /HPF WBC Urine 0-5 0-5 - /HPF Squamous Epithelial Cell Urine 0-2 0-2 - /HP F Bacteria Urine None Seen None Seen - Hyaline Casts Urine 0-2 0-2 - /LPF L ab:Comprehensive Met. Panel (Order Date - 02/02/2025) (Collection Date & Time - 02/02/2025 07:15 AM) Value Reference Range Sodium 142 135-145 - mmol/L Bilirubin Total 0.6 0.0-1.0 - mg/dL Aspartate Amino Transferase 28 5-37 - U/L Alanine Aminotransferase 20 0-40 - U/L Total Protein 6.5 6.5-8.0 - g/dL Albumin Level 4.1 3.5-5.0 - g/dL Alkaline Phosphatase 84 39-117 - U/L Potassium 4.2 3.3-5.1 - mmol/L Chloride 108 96-108 - mmol/L Carbon Dioxide 29 22-29 - mmol/L Anion Gap 9 L 12-20 - Blood Urea Nitrogen 26 H 9-16 - mg/dL Creatinine 1.01 0.5-1.4 - mg/dL Estimated Glomerular Filt Rate > 60 - Glucose Random 96 60-115 - mg/dL Calcium 8.9 8.4-10.2 - mg/dL L ab:Complete Blood Count Auto Diff (Order Date - 02/02/2025) (Collection Date & Time - 02/02/2025 07:15 AM) Value Reference Range White Blood Count 5.1 4.8-10.8 - X10*3/uL Red Blood Count 4.01 L 4.60-5.80 - X10*6/uL Hemoglobin 12.6 L 14.0-18.0 - g/dl Hematocrit 37.9 L 42.0-52.0 - % Mean Corpuscular Volume 94.5 80.0-98.0 - fL Mean Corpuscular Hemoglobin 31.4 27.0-33.0 - pg Mean Corpuscular HGB Conc 33.2 31.0-36.0 - g/ dl Red Cell Distribution Width 12.7 11.0-16.0 - % Platelet Count 166 160-400 - X10*3/uL Mean Platelet Volume 9.4 9.4-12.4 - fL Neutrophils Percent Auto 49.1 45-73 - % Imm Gran Pct Auto 0.2 0.0-0.4 - % Lymphocytes Percent Auto 38.0 20-40 - % Monocytes Percent Auto 8.2 2-11 - % Eosinophils Percent Auto 3.7 0-4 - % Basophils Percent Auto 0.8 0-2 - % NRBC Pct Auto 0.0 0.0-0.2 - /100WBC Neutrophils Absolute Auto 2.5 2.0-8.3 - x10* 3/uL Imm Gran Abs Auto 0.01 0.00-0.03 - X10*3/uL Lymphocytes Absolute Auto 2.0 1.2-4.9 - X10* 3/uL Monocytes Absolute Auto 0.4 0.1-1.2 - X10*3/ uL Eosinophils Absolute Auto 0.2 0.0-0.4 - X10* 3/uL Basophils Absolute Auto 0.0 0.0-0.2 - X10*3/ uL NRBC Abs Auto 0.000 0.0-0.012 - X10*3/uL L ab:Lipid Panel (Order Date - 02/02/2025) (Collection Date & Time - 02/02/2025 07:15 AM) Value Reference Range Triglycerides 79 <150 - mg/dL Cholesterol 248 H <200 - mg/dL LDL Cholesterol Calculated 179 H <100 - mg/dL HDL Cholesterol 54 >40 - mg/dL * Examination: G eneral Examination: GENERAL APPEARANCE: [...] prostate normal, stool guaiac negative. MALE GENITOURINARY: u ncircumcised, no penile lesions or discharge, no testicular mass, testes descended bilaterally. EXTREMITIES: n o clubbing, cyanosis, or edema. NEUROLOGIC: n onfocal, motor strength normal upper and lower extremities, sensory exam intact. Assessment: * Assessment: 1. A dult general medical examination - Z00.00 (Primary) 2 . B one pain - M89.8X9 3 . P ure hypercholesterolemia - E78.00 4 . R ising PSA level - R97.20 Plan: * Treatment: 2. P ure hypercholesterolemia Notes: doesn't take statins 3. R ising PSA level Notes: prostate exam is normal but am concerned with the severe bone pain and lethargy that he could have metastatic prostate cancer * Procedure Codes: 3 6415 VENIPUNCT, ROUTINE* * Follow Up: 3 Weeks * * The named appointment provid er may or may not be the originator of this progress note, and it is not deemed complete until electronically signed by the appointment provider. Sign off status: Pending * Provider: Swathi Diaz MD Date: Generated for Brooke briones/Mansi/Sumititting on: 06:18 PM EDT History and Physical Notes * HPI (History of Present Illness) Category Sub-Category Detail Notes Category Not es Symptom(s) patient i a 74 yo male here for annual visit with review of recent labs and follow up of chronic issues pain in neck and hips for 3 months. severe. taking energy. base of skull nd into shoulders. getting spasms of pain in neck. Depression Screening PHQ-9 Little inte rest or pleasure in doing things: Not at all Feeling down, depressed, or hopeless: No t [...] Score: 0 Interpretation and Intervention Depression Froylan roberto Findings: Negative Follow-Up for Depression: : [...] clubbing, cyanosi s, or edema MALE GENITOURINARY: uncircumcised, no pe nile lesions or discharge, no testicular mass, testes descended bilaterally RECTAL EXAM: normal tone, no exte rnal hemorrhoids, no masses palpable, prostate normal, stool guaiac negative ORAL CAVITY: mucosa moist
--- OUTSIDE RECORDS SUMMARY | 2025-02-23 18:19 | XMS_ITS | Patient Health Record ---
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 Name Role Phone Ronak Diaz Primary Care Provider Allergies No Known Allergies Results Component Value Reference Range Notes Blood Urea Nitrogen Reviewed date:04/06/2024 05:20:44 PM Interpretation: Performing Lab:[facility], [address] [place] [phone] Notes/Report: Blood Urea Nitrogen 23 9-16 mg/dL Liver Panel Reviewed date:08/03/2024 04:33:30 PM Interpretation: Performing Lab:[facility], [address] [place] [phone] Notes/Report: Bilirubin Total 1.0 0.0-1.0 mg/dL Bilirubin Direct 0.2 0.0-0.5 mg/dL Aspartate Amino Transferase 24 5-37 U/L Alanine Aminotransferase 17 0-40 U/L Total Protein 6.6 6.5-8.0 g/dL Albumin Level 4.0 3.5-5.0 g/dL Alkaline Phosphatase 97 39-117 U/L Lipid Panel with Reflex Reviewed date:08/03/2024 04:33:22 PM Interpretation: Performing Lab:[facility], [address] [place] [phone] Notes/Report: Triglycerides 83 <150 mg/dL Desirable Triglyceride: [...] low results in patients with liver disease. Complete Blood Count Auto Di ff Reviewed date:02/02/2025 01:51:14 PM Interpretation: Performing Lab:[facility], [address] [place] [phone] Notes/Report: White Blood Count 5.1 4.8-10.8 X10*3/uL [...] Panel Reviewed date:02/02/2025 01:48:58 PM Interpretation: Performing Lab:[address] [phone] Notes/Report: Triglycerides 79 <150 mg/dL Desirable Triglyceride: [...] t Reviewed date:02/02/2025 01:50:47 PM Interpretation: Performing Lab:[address] [phone] Notes/Report: Urine, Clean Catch Color Urine Yellow Appearance Urine Clear PH 5.5 5.0-9.0 Glucose Urine UA Negative Negative mg/dL Urine Blood Negative Negative Specific [place] - Urine 1.025 1.005-1.025 Urine Protein Negative Neg-Trace mg/dL Urine Ketones Negative Negative mg/dL Nitrite Urine Negative Negative Leukocyte Esterase Urine Negative Negative RBC Urine 0-2 0-2 /HPF WBC Urine 0-5 0-5 /HPF Squamous Epithelial Cell Urine 0-2 0-2 /HPF Bacteria Urine None Seen None Seen Hyaline Casts Urine 0-2 0-2 /LPF Erythrocyte Sedimentation Ra te Reviewed date:02/23/2025 06:10:40 PM Interpretation: Performing Lab:[facility], [address] [place] [phone] Notes/Report: Erythrocyte Sedimentation Rate 7 0-15 MM/HR Patients with polycythemia and many hemoglobin abnormalities may have depressed sed rates whereas patients with anemia may have elevated sed rates. XR cervical spine 4V Reviewed date:02/23/2025 02:24:49 PM Interpretation: Performing Lab: Notes/Report: [address] [address] XRay Report Signed Patient: Alexis Edge MR#: [id number] 339 : 1950 Acct:[id number] Age/Sex: 74 / M ADM Date: 02/23/25 Loc: ANGELA Attending Dr: Ronak Diaz MD Ordering Physician: Ronak Diaz MD Date of Service: 02/23/25 Procedure(s): XR cervical spine 4V Accession Number(s): [id number] cc: Ronak Diaz MD Reason for Exam: [...] 02/23/25 1413 DD/ 1402 TD/TT: 02/23/25 1408 Business Assistant: [place] [address] XRay Report Signed Patient: Alexis Edge MR#: [id number] 339 : 1950 Acct:[id number] Age/Sex: 74 / M ADM Date: 02/23/25 Loc: HO.XRAY Attending Dr: Ronak Diaz MD Ordering Physician: Ronak Diaz MD Date of Service: 02/23/25 Procedure(s): XR cervical spine 4V Accession Number(s): [id number] cc: Ronak Diaz MD Reason for Exam: BON E PAIN EXAMINATION: XR CERVICAL SPINE 4-5 VIEWS [...] in OV> 02/23/25 1413 DD/ 1402 TD/TT: 02/23/251407 Business Assistant: Curry Arrington date:08/03/2024 01:49:46 PM Interpretation: Performing Lab:[facility], [address] [place] [phone] Notes/Report: Hold Gold See Note Specimen held untested for 24 hours; Call to request Chemistry testing. Comprehensive Met. Panel Reviewed date:02/02/2025 01:51:29 PM Interpretation: Performing Lab:[facility], [address] [place] [phone] Notes/Report: Sodium 142 135-145 mmol/L Potassium 4.2 [...] 3.5-5.0 g/dL Alkaline Phosphatase 84 39-117 U/L Prostate Specific Antigen Reviewed date:02/23/2025 03:59:00 PM Interpretation:02-23-2025 Performing Lab:[facility], [address] [place] [phone] Notes/Report: Prostate Specific Antigen 3.34 <0.05-4.0 ng/mL PSA methodology: Rg Alinity i Chemiluminescent Microparticle Immunoassay (CMIA) C Reactive Protein Reviewed date:02/23/2025 03:58:13 PM Interpretation: Performing Lab:[facility], [address] [place] [phone] Notes/Report: C Reactive Protein < 0.10 < or = 0.50 mg/dL Rheumatoid Factor Reviewed date:02/23/2025 06:10:32 PM Interpretation: Performing Lab:[facility], [address] [place] [phone] Notes/Report: Rheumatoid Factor < 13.0 <15.0 IU/mL Reason For Referral No Information Medications Medication SIG (Take, Route, Frequency, Duration) Notes Start Date End Date Status Atorvastatin Calcium 20 MG take 1 tablet by mouth every day Orally Once a day for 90 days Not-Taking Immunizations Vaccine Route Administration Date Status Comme nts Flu Vaccine Unknown 05/15/2012 Administered [facility] Flu Vaccine IM Intramuscular 02/24/2015 Administered Flu[facility]ix Quadrivalent IM Intramuscular 05/20/2018 Adminyasmany moya pt was given the vaccine at [facility] on [address] in [place]. 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 Vital Signs Blood pressure diastolic 60 mm Hg 02/23/2025 Height 69 in 02/23/2025 Blood pressure systolic 112 mm Hg 02/23/2025 Weight 150 lbs 02/23/2025 BMI 22.15 kg/m2 02/23/2025 Encounters Encounter Location Date Provider Diagnosis Ronak Diaz MD [address] [place] [id number] 04/06/2024 Ronak Diaz Elevated BUN R79.9 Ronak Diaz MD [address] [place] [id number] 08/03/2024 Ronak Diaz Pure hypercholestero lemia E78.00 Ronak Diaz MD [address] [place] [id number] 02/02/2025 Ronak Diaz Blood tests for rout ine general physical examination Z00.00 ; Pure hypercholesterolemia E78.00 and Neutropenia, unspecified type D70.9 Ronak Diaz MD [address] [place] [id number] 02/23/2025 Ronak Diaz Adult general medica l examination Z00.00 ; Bone pain M89.8X9 ; Pure hypercholesterolemia E78.00 and Rising PSA level R97.20 Ronak Diaz MD [address] [id number] 01/26/2025 Ronak Diaz Assessments Encounter Date Diagnosis (ICD Code) Assessment Notes Treatment Notes Treatment Clinical Notes Section Notes 04/06/2024 Elevated BUN (ICD-10 - R79.9) 08/03/2024 Pure hypercholesterolemia (ICD-10 - E78.00) 02/02/[address] tests [address] ine general physical examination (ICD-10 - Z00.00) 02/23/2025 Adult general medica l examination (ICD-10 - Z00.00) 02/23/2025 Bone pain (ICD-10 - M89.8X9) x-ray order given to patient, NUC whole body scan order faxed to [facility] dept / unable to tunrn neck. getting severe pain in neck with movement. am conderned with the rising psa could be metastic disease / will get the approprate studies 02/02/2025 Pure hypercholesterolemia (ICD-10 - E78.00) 02/23/2025 Pure hypercholesterolemia (ICD-10 - E78.00) doesn't take statins 02/02/2025 Neutropenia, unspeci fied type (ICD-10 - D70.9) 02/23/2025 Rising PSA level (IC D-10 - R97.20) prostate exam is normal but am concerned with the severe bone pain and lethargy that he could have metastatic prostate cancer Plan Of Treatment Pending Test Test Name Order Date Electrocardiogram (EKG) 11/10/2015 RHEUMATOID FACTOR 02/23/2025 LYME DISEASE AB, TOTAL W/REFL WB (IGG, I GM) 02/23/2025 CRP 02/23/2025 NUC WHOLE BODY SCAN BONE 02/23/2025 Stress Test 01/04/2020 Comprehensive [place]. Panel Fast PSA,Total (Free>4and<10) 02/02/2025 Next Appt Details Provider Name:Ronak Mendoza ier, 03/19/2025 01:45:00 PM, [address] [place] [address], Suite [facility], [place], [place], [phone], Provider Name:Ronak Mendoza ier, 02/18/2026 07:15:00 AM, [address] [place] [address], Suite [facility], [place], [place], [phone], Provider Name:Ronak Mendoza ier, 02/25/2026 01:00:00 PM, [address] [place] [address], [address], [place], [place], [phone], Insurance Providers Payer Name Payer Address Payer Phone Subscriber Number Group Number Insured Name Patient Relationship to Insured Coverage Start Date Coverage End Date [employer] [address] [place], [place] [id number] Alexis Edge Self - patient is the insured Medical (General) History Medical History History ICD Code colonoscopy refused 2014. 2015 2018 2020 cologard 2020
== END 2025-02-23 13:44 | disposition home or self-care (01) ==
LOC: HO.XRAY 13:43
PROVIDERS: PCP Internal Medicine; Visit Provider Internal Medicine
DX: M89.8X9 Other specified disorders of bone, unspecified site (principal)
CPT/HCPCS: 72050

== ENCOUNTER → 2025-02-23 13:51 | Outpatient (BNV) | payer BC, SELFPAY | PROVIDERS: PCP Internal Medicine; Visit Provider Radiology Diagnostic Radiology | DX: M50.30 Other cervical disc degeneration, unspecified cervical region (principal) | CPT/HCPCS: 72050 ==

== ENCOUNTER 2025-02-23 15:01 | Outpatient (REF) | payer BC, SELFPAY ==
[2025-02-24 05:34] LABS: Lyme Abs Screen <0.90 index
== END 2025-02-23 15:02 | disposition home or self-care (01) ==
LOC: HO.LNP 15:01
PROVIDERS: Visit Provider Internal Medicine
DX: Z01.84 Encounter for antibody response examination (principal); M89.8X9 Other specified disorders of bone, unspecified site
CPT/HCPCS: 85652; 86140; 86431; 86617; 86618

== ENCOUNTER → 2025-04-05 09:35 | Outpatient (REF) | payer MEDICARE, SELFPAY ==
--- NOTE | ~2025-04-05 | NM_ITS ---
EXAMINATION: NM BONE SCAN OF THE WHOLE BODY CLINICAL INFORMATION: Bone pain COMPARISON: Previous cervical spine x-ray February 23, 2025. Report from prior bone scan and right hip x-ray January 2009. Images not available for comparison. TECHNIQUE: Multiple gamma scintillation camera images of the whole body were performed 3 hours following the intravenous administration of 25 mCi Tc-99m MDP. FINDINGS: In the head, increased uptake in the region of the paranasal sinuses probably related to sinus disease. In the thoracic cage and upper extremities, symmetric increased uptake of both shoulders and sternal manubrial and costomanubrial joints probably representing arthritis. In the spine, increased uptake in the cervical and lumbar spine probably representing arthritis. There is a focal increased uptake in the left mid cervical spine which when compared with x-ray may be secondary to severe facet arthritis. In the pelvis, no increased uptake. In the lower extremities, large area of increased uptake in the right proximal femur involving the femoral head neck intertrochanteric region and proximal shaft. Small focal area of increased uptake in the left anterior lateral knee, probably lateral femoral tibial joint or tibial plateau. No other definite bony abnormalities are noted. The urinary bladder and faint visualization of both kidneys are noted. NM/NM bone scan whole body IMPRESSION: Large area of increased uptake in the right proximal femur. Recommend correlation with x-ray. This could represent Paget's disease. Increased uptake in the cervical and lumbar spine, bilateral shoulders, sternomanubrial, and bilateral costomanubrial joints, probably degenerative in nature. Focal area of increased uptake in the left anterior lateral knee probably at the lateral femoral tibial joint or lateral tibial plateau. Correlation with x-ray recommended. Comparison with old bone scan from January 2009 will be made if images can be retrieved. Electronically signed by: Shaylee Fried MD 04/05/2025 03:53 PM [facility]
== END ==
LOC: HO.NUCMED 09:35
PROVIDERS: PCP Internal Medicine; Visit Provider Internal Medicine
DX: M89.8X9 Other specified disorders of bone, unspecified site (principal)
CPT/HCPCS: 78306; A9503

== ENCOUNTER → 2025-04-05 09:50 | Outpatient (BNV) | payer MEDICARE, SELFPAY | PROVIDERS: PCP Internal Medicine; Visit Provider Radiology Diagnostic Radiology | DX: M89.9 Disorder of bone, unspecified (principal) | CPT/HCPCS: 78306 ==

== ENCOUNTER 2025-04-08 15:21 | Outpatient (REF) | payer MEDICARE, SELFPAY ==
--- NOTE | ~2025-04-08 | XR_ITS ---
EXAMINATION: XR FEMUR, RIGHT CLINICAL INFORMATION: Paget's disease of bone COMPARISON: None available. TECHNIQUE: AP and lateral views of the right femur were obtained. FINDINGS: No lytic or blastic lesions. No acute fracture or dislocation. No periosteal bone reaction. No metallic or radiopaque foreign body. No subcutaneous emphysema. XR/XR femur RT 2V IMPRESSION: Normal x-ray, right femur. Electronically signed by: Pan Luke MD 04/08/2025 03:47 PM EST
== END 2025-04-08 15:22 | disposition home or self-care (01) ==
LOC: HO.XRAY 15:21
PROVIDERS: PCP Internal Medicine; Visit Provider Internal Medicine
DX: M88.9 Osteitis deformans of unspecified bone (principal)
CPT/HCPCS: 73552

== ENCOUNTER → 2025-04-08 15:41 | Outpatient (BNV) | payer MEDICARE, SELFPAY | PROVIDERS: PCP Internal Medicine; Visit Provider Radiology Diagnostic Radiology | DX: M88.851 Osteitis deformans of right thigh (principal) | CPT/HCPCS: 73552 ==